=== PATIENT | female | born 1940 | race Caucasian/White ===

== ENCOUNTER 2017-10-31 12:11 | Emergency (ER) | payer MEDICARE ==
[~2017-10-31 12:11] MED LIST: Iopamidol 370 76% 100 ML VIAL ONE
[2017-10-31 12:56] LABS: #Basophils 0.1 thou/uL (0.0-0.2); #Eosinphils 0.2 thou/uL (0.0-0.7); #Lymphocytes 0.9 thou/uL (1.20-3.40); #Monocytes 0.3 thou/uL (0.11-0.59); #Neutrophils 4.2 thou/uL (1.40-6.50); %Basophils 2.1 % (0.0-1.0); %Lymphocytes 15.3 % (21.0-51.0); %Monocytes 5.2 % (0.0-10.0); %Neutrophils 73.5 % (42.0-75.0); Mean Corpuscular HGB CONC 34.1 g/dL (32.0-36.0); Mean Corpuscular Hemoglobin 30.7 pg (27.0-31.0); Mean Corpuscular Volume 90.1 fl (81.0-99.0); Mean Platelet Volume 6.3 fL (7.4-10.4); Platelet Count 180 thou/uL (130-400); RBC Distribution Width 11.6 % (11.5-14.5); Red Blood Cell (RBC) Count 3.89 mill/uL (4.20-5.40); White Blood Cell (WBC) Count 5.7 thou/uL (4.8-10.8)
[2017-10-31 12:57] LABS: ALT (SGPT) 27 U/L (8-55); AST (SGOT) 43 U/L (5-34); Albumin 3.9 g/dL (3.4-4.8); Alkaline Phosphatase 85 U/L (40-150); Anion Gap 17 mmol/L (10-20); BUN (Urea Nitrogen) 14 mg/dL (9.8-20.1); Bilirubin, Total 0.7 mg/dL (0.2-1.2); CKMB 1.9 ng/mL (0-6.6); Calc. Creatinine Clearance 0 mL/min (70-130); Calcium 9.6 mg/dL (7.8-10.44); Carbon Dioxide 24 mmol/L (23-31); Chloride 101 mmol/L (98-107); Estimated GFR-MDRD 47; Globulin 3.3 g/dL (2.4-3.5); Glucose 173 mg/dL (83-110); Lipase 73 U/L (8-78); Potassium 3.5 mmol/L (3.5-5.1); Protein, Total 7.2 g/dL (6.0-8.3); Sodium 138 mmol/L (136-145); Troponin I 0.011 ng/mL (< 0.028)
--- NOTE | 2017-10-31 13:04 | RAD ---
2 VIEWS CHEST: Date: 10/31/17 COMPARISON: 02/08/04. HISTORY: Pain, cough, bronchitis. FINDINGS: Increased linear interstitial density is noted bilaterally with pulmonary hyperinflation, suggesting COPD in the proper clinical setting. Midline sternotomy wires are present. There is degenerative change within the thoracic spine, most prominent at T9-10. There is mild anteri or wedge compression fracture of T12, stable. Midline sternotomy wires and mediastinal clips are pres ent, stable. Stable atherosclerotic calcification of the aortic arch. No focal consolidation or alveo lar edema. IMPRESSION: Chronic findings as detailed above. No lobar consolidation or alveolar edema. POS: [facility]
--- NOTE | 2017-10-31 13:08 | RAD ---
2 VIEWS LUMBAR SPINE: Date: 10/31/17 COMPARISON: None. HISTORY: Low back pain. FINDINGS: There is extensive atherosclerotic calcification of the abdominal aorta. Anterolisthesis of L5 on S1 measuring 1.1 cm with severe degenerative end plate change at the L5-S1 l evel. There is an age-indeterminate anterior wedge compression fracture of the L1 vertebral body with approximately 70% loss of vertebral body height. There is mild anterior wedging at T12 vertebral body suggesting age-indeterminate mild fracture. Ther e is mild age-indeterminate inferior end plate fracture at T10 as well. IMPRESSION: Age-indeterminate fractures are noted at T10, T12, and L1. The L1 fracture demonstrates a burst confi guration with 70% loss of vertebral body height. Acute fracture cannot be excluded in the proper clin ical setting. POS: [facility]
[2017-10-31 14:22] LABS: Bilirubin Negative (Negative); Blood, Urine Small (Negative); Glucose, Urine (Dipstick) Negative (Negative); Leukocyte Large (Negative); Nitrite Negative (Negative); Protein, Urine (Dipstick) 30 mg/dL (Neg-Trace)
[2017-10-31 14:33] LABS: Clarity Cloudy (Clear)
[2017-10-31 14:34] LABS: Bacteria/HPF 4+ HPF (None Seen)
--- NOTE | 2017-10-31 14:54 | CT ---
CHEST CT ANGIOGRAM AND ABDOMEN CT ANGIOGRAM WITH AND WITHOUT CONTRAST IMAGES INCLUDING 3D RENDERING: Date: 10/31/17 HISTORY: 77-year-old female with history of bronchitis, not feeling well. Pain in lower back for 5-6 days. FINDINGS: There is extensive aortic calcification, as well as marked three vessel coronary artery calcific dise ase. No significant CT evidence for acute PE. No evidence of aortic aneurysm or dissection. There are old granuloma calcification changes, and some mild linear and interstitial changes in the right base having more of an old appearance. Small hiatal hernia. There appears to be some faint contrast withi n the right renal collecting system on the precontrast imaging. The visualized liver, borderline uppe r range of normal size gallbladder, pancreas, and spleen are unremarkable. No evidence for gallstones or gallbladder wall thickening. No ductal dilatation. Status post aortobifemoral bypass graft partia lly seen, not seen distally. 0.9 cm of anterolisthesis of L5 on S1. Evidence for a burst fracture of L1, age is indeterminate, wit h very mild superior retropulsion. There is also a compression fracture of T12 with less than 50% misty tical height loss. This is age-indeterminate as well without significant associated stenosis. There i s also collapsed vertebral body involving T10 which has more of an old appearance. No evidence for ao rtic aneurysm. IMPRESSION: No significant CT evidence for acute PE. No evidence for aortic aneurysm or dissection. Burst fractur e of L1 and mild compression fracture of T12, age-indeterminate, with an old appearing T10 compressio n. Marked anterolisthesis of L5 on S1. Numerous other findings as above. POS: [facility]
--- NOTE | 2017-10-31 17:40 | RAD ---
LUMBAR SPINE THREE VIEWS: History: Pain. Comparison: Earlier today. FINDINGS: No further height loss of the compression fracture of L1. There is also a compression fracture of T12 . Old compression fracture at T10 is also present. Anterolisthesis is unchanged at L5-S1. IMPRESSION: 1. No further height loss of the compression deformities of the lumbar and thoracic spine. 2. There is residual contrast in the urinary bladder in dilated and patulous right ureter. POS: [facility]
== END 2017-10-31 16:55 | disposition home or self-care (01) ==
LOC: SCSER 12:11
DX: M48.56XA Collapsed vertebra, not elsewhere classified, lumbar region, initial encounter for fracture (principal); N39.0 Urinary tract infection, site not specified; E78.5 Hyperlipidemia, unspecified; I10 Essential (primary) hypertension; Z79.899 Other long term (current) drug therapy; Z79.82 Long term (current) use of aspirin
CPT/HCPCS: 71046; 71275; 72100; 80053; 81003; 81015; 82553; 83690; 84484; 85025; 87077; 87086; 87186; 93005; 96374; 96376; J2270; L0639

== ENCOUNTER 2017-11-29 12:45 | Outpatient (CLI) | payer MEDICARE ==
--- NOTE | 2017-11-29 14:15 | RAD ---
LUMBAR SPINE SERIES TWO VIEWS: HISTORY: Followup of compression fracture. COMPARISON: 10/31/2017 FINDINGS: The bones are demineralized. Compression changes at the superior endplate of T12 appear relatively s table. The degree of compression of the L1 vertebral body appears slightly increased. There appears to be slightly more bony retropulsion and/or retrolisthesis at this level. The remainder of the misty tebral bodies maintain normal height. Severe disk narrowing is seen at L5-S1. Spondylolisthesis at this level is stable. IMPRESSION: Slight increase in the degree of compression of the L1 vertebral body. The T12 compression changes a ppear stable. POS: [facility]
== END 2017-11-29 12:46 | disposition home or self-care (01) ==
LOC: TBSIIMAG 12:45
PROVIDERS: ATTEND Neurological Surgery
DX: S32.012A Unstable burst fracture of first lumbar vertebra, initial encounter for closed fracture (principal); G95.20 Unspecified cord compression
CPT/HCPCS: 72100

== ENCOUNTER 2017-12-15 12:19 | Outpatient (CLI) | payer MEDICARE ==
[2017-12-15 14:07] LABS: INR-International Normal Ratio 1.2; PTT 35.6 SEC (22.9-36.1); Prothrombin Time 15.6 SEC (12.0-14.7)
[2017-12-15 14:19] LABS: Anion Gap 10 mmol/L (10-20); BUN (Urea Nitrogen) 9 mg/dL (9.8-20.1); Calc. Creatinine Clearance 0 mL/min (70-130); Calcium 9.1 mg/dL (7.8-10.44); Carbon Dioxide 30 mmol/L (23-31); Chloride 99 mmol/L (98-107); Estimated GFR-MDRD 52; Glucose 96 mg/dL (83-110); Potassium 3.6 mmol/L (3.5-5.1); Sodium 135 mmol/L (136-145)
== END 2017-12-15 12:20 | disposition home or self-care (01) ==
LOC: LABBT 12:19
PROVIDERS: ATTEND Internal Medicine Cardiovascular Disease
DX: Z01.818 Encounter for other preprocedural examination (principal); I48.91 Unspecified atrial fibrillation
CPT/HCPCS: 80048; 85610; 85730

== ENCOUNTER 2017-12-16 10:04 | Day surgery (SDC) | payer MEDICARE ==
[2017-12-15 12:43] VITALS: BMI 17.7
[2017-12-16] MEDS ORDERED: Diprivan 20 ML ONE (11:47)
[2017-12-16] MEDS ORDERED: Lidocaine 2% PF 100 mg/5 ml Syringe ONE (11:47)
--- NOTE | 2017-12-16 13:09 | OP ---
DATE OF PROCEDURE: 12/16/2017 ELECTROCARDIOVERSION INDICATION: This 77-year-old woman with paroxysmal atrial fibrillation. DESCRIPTION OF PROCEDURE: The patient was taken to the PACU. The patient was sedated by anesthesiol anthony. The patient shocked with 200 joules of synchronized electricity. The converted to normal sinus rhythm. IMPRESSION: Successful electrocardioversion.
--- NOTE | 2017-12-16 14:45 | ECHO ---
TRANSESOPHAGEAL ECHOCARDIOGRAM: DATE OF PROCEDURE: 12/16/17 INDICATION: 77-year-old woman with paroxysmal atrial fibrillation. DESCRIPTION OF PROCEDURE: The patient was taken to the PACU. The patient was sedated by anesthesiology. A transesophageal probe was placed in the distal esophagus and stomach. Echocardiographic images were obtained. The transesophageal probe was removed. FINDINGS: 1. Normal left ventricular systolic function. 2. Left atrial enlargement. 3. Mild to moderate mitral regurgitation. 4. Moderate to severe tricuspid regurgitation. 5. No thrombus in left atrial appendage. 6. Atherosclerotic debris in the descending aorta. IMPRESSION: No formed thrombus in left atrial appendage.
--- NOTE | 2017-12-16 16:48 | EKG ---
Test Reason : PREOP Blood Pressure : / mmHG Vent. Rate : 131 BPM Atrial Rate : 069 BPM P-R Int : 000 ms QRS Dur : 088 ms QT Int : 282 ms P-R-T Axes : 000 007 246 degrees QTc Int : 416 ms undetermined rhythm bigeminal pattern of narrow complex alternating with aberrantly RBBB pattern cond ucted beats Nonspecific ST-T changes Abnormal ECG When compared with ECG of 09-NOV-2017 11:02, (Unconfirmed) Fusion complexes are now Present Criteria for Septal infarct are no longer Present ST now depressed in Inferior leads ST now depressed in Anterolateral leads T wave inversion now evident in Inferior leads T wave inversion now evident in Lateral leads Confirmed by DR. Nava UGALDE (3) on 12/16/2017 4:48:36 PM Referred By: ENRIQUE Confirmed By:DR. Nava UGALDE
== END 2017-12-16 13:45 | disposition home or self-care (01) ==
LOC: CCL 10:04
PROVIDERS: ATTEND Internal Medicine Cardiovascular Disease
PROC: 5A2204Z Restoration of Cardiac Rhythm, Single (ICD-10-PCS; principal; 2017-12-16)
PROC: B24BZZ4 Ultrasonography of Heart with Aorta, Transesophageal (ICD-10-PCS; 2017-12-16)
DX: I48.0 Paroxysmal atrial fibrillation (principal); I25.119 Atherosclerotic heart disease of native coronary artery with unspecified angina pectoris; I10 Essential (primary) hypertension; E78.00 Pure hypercholesterolemia, unspecified; F32.9 Major depressive disorder, single episode, unspecified; K21.9 Gastro-esophageal reflux disease without esophagitis; M81.0 Age-related osteoporosis without current pathological fracture; Z79.82 Long term (current) use of aspirin; Z79.01 Long term (current) use of anticoagulants; Z79.899 Other long term (current) drug therapy; Z88.2 Allergy status to sulfonamides; Z88.8 Allergy status to other drugs, medicaments and biological substances; Z95.1 Presence of aortocoronary bypass graft; Z95.820 Peripheral vascular angioplasty status with implants and grafts; Z98.890 Other specified postprocedural states
CPT/HCPCS: 92960; 93005; 93010; 93312; J2001; J2704

== ENCOUNTER 2017-12-20 13:04 | Outpatient (CLI) | payer MEDICARE ==
[2017-12-20] MEDS ORDERED: Gadobenate Dimeglumine 529 MG/1 ML (20ML VIAL) ONE (16:33)
== END 2017-12-20 13:05 | disposition home or self-care (01) ==
LOC: BICMAMMO 13:04
PROVIDERS: ATTEND Neurological Surgery
DX: S32.019S Unspecified fracture of first lumbar vertebra, sequela (principal); S32.011S Stable burst fracture of first lumbar vertebra, sequela; M47.26 Other spondylosis with radiculopathy, lumbar region
CPT/HCPCS: 72158; 77080; A9579

== ENCOUNTER 2018-07-01 14:49 | Inpatient (IN) | payer MEDICARE ==
[~2018-07-01 14:49] MED LIST changes: +ISOVUE-370 76%-LOCM 1 ML ONE; -Iopamidol 370 76% 100 ML VIAL ONE
[2018-07-01] MEDS ORDERED: Dexamethasone 10 MG/ML VIAL ONE (15:23)
[2018-07-01] MEDS ORDERED: Magnesium Sulfate 2 GM in Sodium Chloride 0.9% 100 ML IVPB ONE (15:30)
[2018-07-01 15:38] LABS: Bilirubin Small (Negative); Blood, Urine Large (Negative); Clarity CLOUDY (Clear); Glucose, Urine (Dipstick) Negative (Negative); Leukocyte Trace (Negative); Nitrite Negative (Negative); Protein, Urine (Dipstick) 100 mg/dL (Neg-Trace); Specific Gravity, Urine 1.018 (1.002-1.036)
[2018-07-01 15:41] LABS: Bacteria/HPF None Seen HPF (None Seen); Hyaline Casts/LPF 4-6 HYALINE CAST LPF (0-3 Hyaline); Pathc Cast-AUWi Flag 1.01 (0-2.49); Squamous Epithelial 0-3 HPF (0-3); WBC/HPF 0-3 HPF (0-3)
[2018-07-01 15:52] LABS: RBC/HPF 21-50 HPF (0-3)
[2018-07-01 15:54] LABS: Analyzer IN Cardio ER; Base Excess (BEa) -3.9 mEq/L (-2.0 to +3.0); Calcium, Ionized 1.04 mmol/L (1.12-1.30); Carboxyhemoglobin (COHb) 0.6 gm% (0.0-3.0); Hemoglobin (Hb) 13.8 g/dL (12.0-16.0); O2 Tension (PaO2) 98.1 mmHg (> 70.0); Potassium - ABG Lab 3.26 mmol/L (3.70-5.30); pH, Arterial 7.43 (7.35-7.45)
[2018-07-01 15:54] LABS: Hemoglobin 11.8 g/dL (12.0-16.0); Mean Corpuscular HGB CONC 34.1 g/dL (32.0-36.0); Mean Corpuscular Hemoglobin 32.8 pg (27.0-31.0); RBC Distribution Width 11.9 % (11.5-14.5); Red Blood Cell (RBC) Count 3.59 mill/uL (4.20-5.40); White Blood Cell (WBC) Count 8.5 thou/uL (4.8-10.8)
[2018-07-01 16:08] LABS: Band 11 % (5-11); Hypochromia SLIGHT = 6-15 cells (100X) (0-5/hpf); Lymphocytes 4 % (21-51); MDiff Complete? YES; Mean Platelet Volume 9.1 fL (7.4-10.4); Monocytes 19 % (0-10); Neutrophil 66 % (42-75); PLT Morphology Comment Appears Decreased; Platelet Count 80 thou/uL (130-400)
[2018-07-01 16:14] LABS: ALT (SGPT) 51 U/L (8-55); AST (SGOT) 120 U/L (5-34); Albumin 3.5 g/dL (3.4-4.8); Alkaline Phosphatase 88 U/L (40-150); Anion Gap 16 mmol/L (10-20); BUN (Urea Nitrogen) 21 mg/dL (9.8-20.1); Bilirubin, Total 1.7 mg/dL (0.2-1.2); CK (CPK) 1284 U/L (29-168); Calc. Creatinine Clearance 0 mL/min (70-130); Calcium 8.1 mg/dL (7.8-10.44); Carbon Dioxide 21 mmol/L (23-31); Chloride 94 mmol/L (98-107); Estimated GFR-MDRD 46; Globulin 2.2 g/dL (2.4-3.5); Glucose 105 mg/dL (83-110); Lipase 49 U/L (8-78); Potassium 3.8 mmol/L (3.5-5.1); Protein, Total 5.7 g/dL (6.0-8.3); Sodium 127 mmol/L (136-145)
[2018-07-01 16:22] LABS: CKMB 1.8 ng/mL (0-6.6); Troponin I 0.044 ng/mL (< 0.028)
--- NOTE | 2018-07-01 16:30 | RAD ---
ONE VIEW CHEST: 07/01/18 COMPARISON: 10/25/06. HISTORY: Dyspnea. FINDINGS: Atherosclerosis of the aorta. Normal cardiac silhouette. Pulmonary vessels and hilum are normal. Cost ophrenic angles are clear. Chronic changes, without consolidation or mass. There is no pneumothorax. No osseous abnormalities. Extensive calcifications of the carotid arteries is suspected. Sternotomy wires are noted. IMPRESSION: Extensive atherosclerosis. No acute cardiopulmonary process. POS: [facility]
[2018-07-01 16:39] LABS: Digoxin 1.27 ng/mL (0.8-2.0)
--- NOTE | 2018-07-01 18:17 | CT ---
CT ANGIOGRAM CHEST WITH CONTRAST 07/01/18 HISTORY: Weakness. Low O2 sats. COMPARISON: Chest radiograph same day. FINDINGS: CT angiogram of the chest performed after the intravenous administration of contrast. 3D rendering is provided. Pulmonary trunk and left and right main pulmonary arteries are dilated. No proximal segmen andre pulmonary arterial filling defect is appreciated. Extensive calcification of the aorta without aneurysmal dilatation. Heart size is enlarged. There is reflux of contrast within the hepatic veins and suprahepatic IVC. No filling defect is seen within th e left atrial appendage. Multiple midline sternotomy wires. Multiple calcified granulomas of the spleen. Extensive calcification of the origin of the superior me senteric artery and celiac arteries. Compression fractures are present at the superior end plate of T12 as well as vertebra plana at what appears to be L1. There is also compression fracture at L4. There is moderate pulmonary edema. Small effusions. No acute displaced rib fracture is appreciated. IMPRESSION: 1. No proximal segmental pulmonary arterial filling defect. 2. Cardiomegaly with moderate edema and small effusions to suggest congestive heart failure. The re is also reflux within the suprahepatic IVC and hepatic veins indicating diastolic dysfunction. 3. Osseous demineralization of multiple compression fractures of the spine. 4. Dilated pulmonary artery suggesting pulmonary arterial hypertension. POS: [facility]
[2018-07-01] MEDS ORDERED: MEROPENEM 1 GM/50 ML 1 GM in Premix Bag 1 BAG IVPB SCH (18:30)
[2018-07-01] MEDS ORDERED: DOBUTamine 500 mg/250 ml 500 MG in Premix Bag 1 BAG IVPB SCH (18:30)
[2018-07-01 19:34] LABS: Troponin I 0.049 ng/mL (< 0.028)
[2018-07-01 22:16] LABS: Troponin I 0.049 ng/mL (< 0.028)
[2018-07-01] MEDS ORDERED: Ondansetron HCl/PF 4 MG/2 ML Vial IVP PRN (22:31)
[2018-07-01] MEDS ORDERED: Ondansetron ODT 4 MG TAB SL PRN (22:31)
[2018-07-01] MEDS ORDERED: Sodium Chloride 0.9% 1,000 ML IV SCH (22:45)
[2018-07-01] MEDS ORDERED: Famotidine 20 MG TAB PO SCH (23:15)
[2018-07-01] MEDS ORDERED: Apixaban 2.5 MG TAB PO SCH (23:15)
[2018-07-01] MEDS ORDERED: Ezetimibe 10 MG TAB PO SCH (23:15)
[2018-07-02] MEDS: Cefepime 2 GM in Sodium Chloride 0.9% 100 ML IVPB SCH ×3 (00:19→23:16)
[2018-07-02 01:36] LABS: Osmolality, Urine 405 mOsm/kg (300-900)
[2018-07-02 01:44] LABS: Sodium, Urine Less than 20 mmol/L (Not Available)
--- NOTE | 2018-07-02 02:06 | HP ---
PRIMARY CARE PHYSICIAN: Dr. Rick Sinclair. CHIEF COMPLAINT: Feeling sick and also short of breath. HISTORY OF PRESENT ILLNESS: Ms. Frey is a pleasant 77-year-old female who has a history of coronar y artery disease, also has a history of a left atrial myxoma, which was resected as well as hypertens ion. She was in her usual state of health until Wednesday. She says that she was feeling "sick." She had gone to worship and then when she went home about 4 hours later, her son checked on her and she se emed confused and did not remember going to worship at all. Other family members report that she has been having "fevers off and on all week" and she also got extremely weak and fell 3 times during the night prior to admission. They also noted some wheezing when she was breathing, but she has not had any cough. She says that she began getting more and more short of breath and says that she feels lik e she needs to cough, but can take a deep enough breath in order to do so. As a result, she came to the emergency room for evaluation. In the ER, she was found to be tachypneic as well as hypoxic and O2 sats reportedly were in the 80s initially. She was given supplemental oxygen, but eventually need ed to be placed on BiPAP. She was also noted to have some temperature of 100.7 rectally. A chest x- ray was essentially negative, but a CT scan was done and showed evidence of moderate amount of edema and pleural effusions to suggest congestive heart failure. The patient is currently being admitted t o the ICU for further treatment. Other pertinent information as the patient also was complaining of some pain on her left knee behind her knee for the past few days and then noticed some redness in marcia t area just starting today. She says this is the same leg in which she has had a femoral popliteal b ypass surgery. The patient during this time denies having any chest pain, no palpitations. No repor t of any PND, no orthopnea, and she says she was never told she had any type of heart failure. She s ays she last saw Dr. Kaba about 3 weeks ago and things were essentially stable at that time. REVIEW OF SYSTEMS: All systems are reviewed and are negative except for that mentioned in the histor y of present illness. PAST MEDICAL HISTORY: Significant for coronary artery disease, left atrial myxoma, hypertension, dys lipidemia, carotid artery disease. PAST SURGICAL HISTORY: She has had a bypass surgery and the resection of a left atrial myxoma. She also had a redo CABG, aortofemoral bypass, left femoral bypass, and a left carotid endarterectomy, as well as a hysterectomy. ALLERGIES: SULFA. SOCIAL HISTORY: She is , has two children. She is a former smoker. She drinks about 6 ounc es of wine a day. She is not sure about her code status, she cannot decide. For this reason, she wi ll be a FULL CODE. FAMILY HISTORY: Significant for cancer. MEDICATIONS: She is not sure about her medications, her daughter says she is on Zetia, Lipitor, digo luis, Eliquis, Micardis, and Zoloft, but does not know the doses and she says she believes there are c ouple more. PHYSICAL EXAMINATION: GENERAL: She is alert and oriented. She appears to be in some distress due to dyspnea. She is well -developed and well-nourished, but a bit thin. She is currently on BiPAP. VITAL SIGNS: Initially blood pressure was 88/62, heart rate 86, respiratory rate of 32, temperature was 99.4. HEENT: Pupils are equal, round, and reactive. Extraocular muscles are intact. Her sclerae are anic teric. Throat: She has got dry mucous membranes. There is no erythema, no exudates. NECK: There is no jugular venous distention, no bruits, no adenopathy. LUNGS: She has got rales; however, is primarily in the right base. She has some mild decreased danuta th sounds at the bases. I did not appreciate any wheezing, no rhonchi. CARDIOVASCULAR: She had a normal S1, S2. There is no S3 or S4. No murmurs, clicks, or rubs. ABDOMEN: Soft, it is nontender, nondistended. Positive for bowel sounds. There is no rebound or gu arding. EXTREMITIES: She had no edema. She had some redness in the popliteal fossa. There was no warmth; h owever, there is no erythema. She got palpable dorsalis pedis pulses. NEUROLOGIC: She is moving all extremities. Her muscle strength is 5/5 in both her upper and lower e xtremities. Her cranial nerves II through XII are intact. LABORATORY AND X-RAY FINDINGS: Her chest x-ray by my reading, it looks like she had some cardiomegal y as well as increase in her pulmonary vascular markings and there were some calcifications of her ma allison vessels. A CT scan again demonstrated some cardiomegaly and evidence for pulmonary edema. Sodiu m was 127, potassium 3.8, chloride is 94, CO2 is 21, BUN of 21, creatinine of 1.13, glucose is 105, t otal bilirubin was elevated at 1.7, AST is 120. Troponin was 0.044. White blood cell count was 8.5, hemoglobin of 11.8, hematocrit is 34.5, platelet count is 80. Her EKG is sinus rhythm, the rate was 86. She appears to have an interventricular conduction delay and RSR prime in V1 and V2 as well as V3, likely indicating a right bundle branch block. ASSESSMENT AND PLAN: This is a pleasant 77-year-old female who presents with what sounds like a suba cute episode of shortness of breath, the etiology of which is a bit difficult to discern some of the characteristics are consistent with heart failure and other possibilities of pneumonia. Her dose fav oring congestive heart failure or the increase proBNP. CT findings consistent with edema and her ciera vated troponin. Her white count is normal and there is no left shift. However, on exam, the rales s eem to be localized primarily to the right lower mid quadrant and she did have some fever on admissio n and then had historically some fever over the last week. She is also hyponatremic. This could be due to volume overload or volume depletion, we will need to do further testing to help discern this. Therefore, for the plan, patient will be admitted to the ICU. I spoke with her automotive dismantler on the phone to help make this decision. Her situation is more or less continuous with her borderline blood pressure and advanced age and complicated cardiac history. 1. Acute hypoxic respiratory failure with hypoxemia. We will continue BiPAP for now. She would lik e to be remained a FULL CODE. Therefore, she decompensates, she would require intubation. 2. Congestive heart failure. This would be new onset. Her blood pressure is just now come up high enough to give a trial of IV Lasix. We will just do x1. I spoke with Dr. Kaba of her pressure s hould drop again and then she would recommend using dopamine. We will place a Patricio to accurately mo nitor her I's and O's. We will check an echocardiogram to assess her EF. 3. Possible pneumonia. We will treat her with cefepime and Levaquin. We will also check a procalci tonin to help us to determine whether she could be infected or for bacterial infection. 4. Coronary artery disease history. We will continue to trend her cardiac enzymes. 5. For hypertension, we will need to reconcile her home medications. However, right now, her blood pressure is borderline to low, therefore likely will not restart them at this point. Should her bloo d pressure rise, then we can use her usual home medications plus p.r.n. medications. 6. Hyponatremia. We will need to check a urine sodium as well as urine and sodium osmolality to hel p differentiate the cause and then treat appropriately. 7. Deep venous thrombosis prophylaxis. This will likely be held. She historically has been on Eliq uis; therefore, once we can verify this, this can be restarted and will be used in lieu deep venous t hrombosis prophylaxis.
[2018-07-02] MEDS ORDERED: MEROPENEM 1 GM/50 ML 1 GM in Premix Bag 1 BAG IVPB SCH (03:00)
[2018-07-02 04:18] LABS: Anion Gap 14 mmol/L (10-20); BUN (Urea Nitrogen) 21 mg/dL (9.8-20.1); Calc. Creatinine Clearance 38 mL/min (70-130); Calcium 8.4 mg/dL (7.8-10.44); Carbon Dioxide 20 mmol/L (23-31); Chloride 98 mmol/L (98-107); Estimated GFR-MDRD 57; Glucose 130 mg/dL (83-110); Potassium 3.7 mmol/L (3.5-5.1); Sodium 128 mmol/L (136-145)
[2018-07-02 05:06] LABS: Band 22 % (5-11); Hemoglobin 11.3 g/dL (12.0-16.0); Lymphocytes 4 % (21-51); MDiff Complete? YES; Mean Corpuscular HGB CONC 34.1 g/dL (32.0-36.0); Mean Corpuscular Hemoglobin 32.6 pg (27.0-31.0); Mean Corpuscular Volume 95.6 fL (78.0-98.0); Mean Platelet Volume 9.3 fL (7.4-10.4); Monocytes 3 % (0-10); Neutrophil 71 % (42-75); PLT Morphology Comment Appears Decreased; Platelet Count 83 thou/uL (130-400); Red Blood Cell (RBC) Count 3.48 mill/uL (4.20-5.40); White Blood Cell (WBC) Count 7.8 thou/uL (4.8-10.8)
[2018-07-02] MEDS ORDERED: Furosemide 40 MG/4 ML VIAL SLOW IVP SCH (06:00)
[2018-07-02] MEDS ORDERED: Prevnar 13-Val Conj/PF 0.5 ML SYRINGE IM ONE (09:00)
[2018-07-02] MEDS: Apixaban 2.5 MG TAB PO SCH ×2 (09:55→20:02)
[2018-07-02] MEDS ORDERED: Aspirin 81 mg Enteric Coated Tablet PO SCH (11:00)
[2018-07-02] MEDS: Acetaminophen 325 MG TAB PO PRN (11:49)
--- NOTE | 2018-07-02 12:44 | PDOC.PN ---
- Subjective Encounter Start Date: 07/02/18 Encounter Start Time: 11:40 Subjective: awake, responds well to verbal stimuli -: no sob or chest pain or palp -: no cough or urinary burning prior to arrival (has cramer now) - Objective Resuscitation Status: Resuscitation Status FULL:Full Resuscitation MAR Reviewed: Yes Vital Signs & Weight: Vital Signs (12 hours) Temp Pulse Ox 07/02/18 12:00 98.0 F 07/02/18 08:00 94 L 07/02/18 07:00 98.7 F 07/02/18 03:00 98.0 F Weight Admit Weight 109 lb 2.061 oz Weight 109 lb 2.061 oz Most Recent Monitor Data Heart Rate from ECG 90 NIBP 112/61 NIBP BP-Mean 77 Respiration from ECG 23 SpO2 92 I&O: 07/01/18 07/02/18 07/03/18 06:59 06:59 06:59 Intake Total 622 400 Output Total 975 1140 Balance -353 -740 Result Diagrams: 07/02/18 03:15 07/02/18 03:15 Phys Exam - Physical Examination HEENT: PERRLA, moist MMs Neck: no JVD, supple Respiratory: no wheezing, no rales Cardiovascular: RRR, no significant murmur Gastrointestinal: soft, non-tender, positive bowel sounds Musculoskeletal: no edema, pulses present Neurological: non-focal, moves all 4 limbs Psychiatric: normal affect, A&O x 3 Dx/Plan (1) Acute encephalopathy Code(s): G93.40 - ENCEPHALOPATHY, UNSPECIFIED Status: Acute (2) Streptococcal bacteremia Code(s): R78.81 - BACTEREMIA; B95.5 - UNSP STREPTOCOCCUS THE CAUSE OF DISEASES CLASSD ELSWHR Status: Acute (3) Sepsis Code(s): A41.9 - SEPSIS, UNSPECIFIED ORGANISM Status: Acute Qualifiers: Sepsis type: Streptococcus group B Qualified Code(s): A40.1 - Sepsis due to streptococcus, group B (4) Chronic a-fib Code(s): I48.2 - CHRONIC ATRIAL FIBRILLATION Status: Chronic (5) Acute respiratory failure with hypoxia Code(s): J96.01 - ACUTE RESPIRATORY FAILURE WITH HYPOXIA Status: Resolved (6) HTN (hypertension) Code(s): I10 - ESSENTIAL (PRIMARY) HYPERTENSION Status: Chronic Qualifiers: Hypertension type: essential hypertension Qualified Code(s): I10 - Essential (primary) hypertension - Plan is on cefepime -: gentle iv hydration/oral hydration if she tolerates -: may transfer to tele -: continue asp, lipitor, eliquis and zetia -: PT to mobilize as tolerated with rw * . Review of Systems - Medications/Allergies Allergies/Adverse Reactions: Allergies Allergy/AdvReac Type Severity Reaction Status Date / Time Sulfa (Sulfonamide Allergy Unknown "broke out Verified 12/15/17 12:43 Antibiotics) " Medications: Current Medications Acetaminophen (Tylenol) 650 mg PO Q4H PRN PRN Reason: Headache/Fever or Pain Last Admin: 07/02/18 11:49 Dose: 650 mg Apixaban (Eliquis) 2.5 mg PO BID [facility] Last Admin: 07/02/18 09:55 Dose: 2.5 mg Aspirin (Ecotrin) 81 mg PO DAILY MARI Aspirin (Ecotrin) 81 mg PO NOW MARI Stop: 07/02/18 13:00 Last Admin: 07/02/18 11:33 Dose: 81 mg Atorvastatin Calcium (Lipitor) 40 mg PO HS MARI Ezetimibe (Zetia) 10 mg PO QPM MARI Cefepime HCl 2 gm/ Sodium (Chloride) 100 mls @ 200 mls/hr IVPB 1200,2359 [facility] Last Admin: 07/02/18 11:33 Dose: 100 mls Pneumococcal 13-Valent Conj Vacc (Prevnar) 0.5 ml IM .ONCE ONE Stop: 07/03/18 06:01
--- NOTE | 2018-07-02 12:50 | CON ---
DATE OF CONSULTATION: 07/02/2018 SERVICE: Pulmonary Medicine. REASON FOR CONSULTATION: ICU patient. HISTORY OF PRESENT ILLNESS: The patient was effectively brought into the hospital by her family, because she was feeling sick, and apparently, there was some shortness of breath associated with that. She has had 3 recent falls and fevers on and off all week. She has not been eating or drinking appropriately. Either way, she was brought into the emergency department. The patient actually cannot tell me why she is here. In the ER, her sats were identified as being a little bit low. She was given supplemental oxygen and eventually placed on BiPAP. She had a little bit of a temperature rectally. In the ICU, she stabilized overnight and did not use the BiPAP at all. This morning, she denies having any shortness of breath or chest discomfort. She had an uneventful evening. She is hungry and requesting some food. PAST MEDICAL HISTORY: 1. Coronary artery disease. 2. Hypertension. 3. Dyslipidemia. 4. Carotid artery disease. 5. Left atrial myxoma. PAST SURGICAL HISTORY: 1. Coronary artery bypass graft and resection of left atrial myxoma. 2. Redo coronary artery bypass graft. 3. Aortofemoral bypass. 4. Left femoral bypass. 5. Left carotid endarterectomy. 6. Hysterectomy. FAMILY HISTORY: Noncontributory. SOCIAL HISTORY: She is and has 2 children. She has a [id number] history of smoking, but quit remotely. She drinks a glass of wine on a daily basis and denies any illicit drugs. She has no exposure to chemicals, dust, asbestos, or tuberculosis. ALLERGIES: SULFA. MEDICATIONS: List of her inpatient medications were reviewed. No specific updates were made. REVIEW OF SYSTEMS: General, head, ears, eyes, nose, throat, cardiovascular, respiratory, GI, , musculoskeletal, neurologic, and skin is negative except as mentioned in the HPI. PHYSICAL EXAMINATION: VITAL SIGNS: Afebrile, pulse 79, blood pressure 113/63, respirations 22, saturation 93% on 3 liters nasal cannula. GENERAL: The patient is awake, alert, in no apparent distress. LUNGS: Decent air entry. Minimal dependent crackles are present. There is no prolonged expiratory phase or wheezing appreciated. HEART: Normal rate, regular. ABDOMEN: Soft, nontender, nondistended. Bowel sounds are positive. MUSCULOSKELETAL: No cyanosis or clubbing. There is no pitting in the bilateral lower extremities. If anything, she has skin tenting throughout. The left posterior leg has erythema present. There is some warmth to it. There is no fluctuance. LABORATORY DATA: WBC 7.8, hemoglobin 11.3, platelets 83,000. Band count is 22% . D-dimer 3.55, pH 7.43, pCO2 of 29, pO2 of 98. BUN 21, bicarbonate 20, creatinine 0.94 and gently down trending. Sodium 128 and improving. Procalcitonin 4.95. Troponin 0.049 and roughly stable. Lactate is unremarkable at 1.2. AST is elevated, but ALT falls within the normal limits. Total bilirubin 1.7. BNP 522. Gram-positive cocci are positive in 2/2, one of which is growing Streptococcus. IMAGING: CT of the chest demonstrates interstitial fullness in the periphery of the lungs. She also has some ground-glass opacification, which falls into the dependent regions. Bilateral pleural effusions are small with minimal adjacent atelectasis. These findings are all consistent, for the most part, with minimal volume overload. She has a very large left atrium and right atrium. Pulmonary artery is generous. ASSESSMENT: 1. Acute hypoxic respiratory failure. 2. Severe sepsis. 3. Metabolic encephalopathy, secondary to infectious process. 4. Bacteremia, secondary to Streptococcus. 5. Cellulitis? DISCUSSION AND PLAN: The patient is on antibiotics. I will discontinue IV fluids and also discontinue the Lasix for the time being. We will allow the patient to eat. Eliquis, aspirin, and Lipitor will be continued. We will hold off on reinitiating her blood pressure medications for the time being and add them back as needed. From my perspective, she is stable for transition to the telemetry unit. Pulmonary Critical Care will continue to follow along. 70 minutes have been devoted to this patient in various activities. I personally reviewed all imaging studies and laboratory data noted within this document. For fifty percent of this time, I was interacting with the patient at the bedside or coordinating care with the care team. For the remainder of the time I was immediately available to the patient in the hospital unit. LORENZO
--- NOTE | 2018-07-02 15:52 | CON ---
DATE OF CONSULT: 07/02/18 CRITICAL CARE NOTE Time 30 minutes. The patient is a pleasant 77-year-old woman with a long history of coronary artery disease who presented with weakness, fever and altered mental status. The patient has a long history of coronary artery disease. She previously underwent coronary bypass graft surgery in 2003. She also had a left atrial myxoma removed. The patient underwent repeat bypass surgery subsequently and underwent a FARR placed to the LAD. The patient also has a history of atrial fibrillation. She has been on chronic anticoagulation therapy. The patient has also had a carotid endarterectomy. The patient was in her usual state of health when she started feeling weak. She reported having fever and took Tylenol. She became diaphoretic and apparently confused. The patient denied having any chest discomfort. PAST MEDICAL HISTORY: 1. Coronary artery disease. 2. Status post coronary bypass surgery x2. 3. History of fem-pop bypass. 4. History of carotid endarterectomy. 5. History of atrial fibrillation. 6. Dyslipidemia. PAST SURGICAL HISTORY: Coronary bypass surgery x3 and left myxoma removed in 2001. She had FARR to the LAD in 2003. She had aortobifemoral in 03/2014. She had a fem-pop bypass 2006, she also had a hysterectomy. SOCIAL HISTORY; Former smoker. ALLERGIES: SULFA. FAMILY HISTORY: Positive family history of heart disease. MEDICATIONS: See nursing list. PHYSICAL EXAMINATION: GENERAL: This is an ill-appearing woman with a blood pressure 120/70. NECK: Showed no jugular venous distention. LUNGS: Have coarse breath sounds bilateral. HEART: Irregular rate and rhythm, normal S1, S2, I/ systolic murmur. ABDOMEN: Nondistended. EXTREMITIES: Showed trace edema. LABORATORY DATA: White blood count 7.8, hemoglobin 11.3, hematocrit 33.3 and platelets are 83. Her sodium was 128, potassium 3.7, chloride 98, bicarbonate 20, BUN 21, creatinine 0.94, glucose is 130. Troponin 0.049. Her chest x-ray revealed cardiomegaly with no acute pulmonary process. CT scan revealed no pulmonary embolus with evidence of pulmonary edema. IMPRESSION: 1. Septic shock secondary to Streptococcus. 2. Coronary artery disease. 3. History of peripheral vascular disease. 4. History of left atrial myxoma. 5. History of cerebrovascular disease. This patient presents with septic shock. The patient is on IV antibiotics. The patient has been restarted on aspirin, Lipitor, and apixaban. From a cardiac standpoint, we will check the patient's echocardiogram. We will follow this critically ill patient with you through her hospitalization. LORENZO
[2018-07-02] MEDS: Atorvastatin Calcium 40 MG TAB PO SCH (20:02)
[2018-07-02] MEDS: Ezetimibe 10 MG TAB PO SCH (20:02)
[2018-07-02] MEDS ORDERED: Famotidine 20 MG TAB PO SCH (21:00)
[2018-07-03 05:59] LABS: Anion Gap 14 mmol/L (10-20); BUN (Urea Nitrogen) 34 mg/dL (9.8-20.1); Calc. Creatinine Clearance 27 mL/min (70-130); Calcium 8.2 mg/dL (7.8-10.44); Carbon Dioxide 20 mmol/L (23-31); Chloride 100 mmol/L (98-107); Estimated GFR-MDRD 42; Glucose 123 mg/dL (83-110); Potassium 3.8 mmol/L (3.5-5.1); Sodium 130 mmol/L (136-145)
[2018-07-03] MEDS ORDERED: Furosemide 40 MG/4 ML VIAL SLOW IVP SCH (06:00)
[2018-07-03] MEDS ORDERED: Prevnar 13-Val Conj/PF 0.5 ML SYRINGE IM ONE ×2 (06:00→09:00)
[2018-07-03 06:11] LABS: Band 22 % (5-11); Hemoglobin 11.7 g/dL (12.0-16.0); Lymphocytes 5 % (21-51); MDiff Complete? YES; Mean Corpuscular HGB CONC 32.4 g/dL (32.0-36.0); Mean Corpuscular Hemoglobin 31.3 pg (27.0-31.0); Mean Corpuscular Volume 96.4 fL (78.0-98.0); Mean Platelet Volume 9.2 fL (7.4-10.4); Monocytes 3 % (0-10); Neutrophil 70 % (42-75); Platelet Count 141 thou/uL (130-400); RBC Distribution Width 12.1 % (11.5-14.5); Red Blood Cell (RBC) Count 3.74 mill/uL (4.20-5.40)
[2018-07-03] MEDS ORDERED: Carvedilol 6.25 MG TAB PO SCH ×2 (08:30→17:00)
--- NOTE | 2018-07-03 09:06 | RAD ---
CHEST 1 VIEW: Date: 07/03/18 HISTORY: Respiratory distress. COMPARISON: 07/01/18. FINDINGS: Atherosclerosis of aorta. There are sternotomy wires. Normal cardiac silhouette. Pulmonary vessels an d hilum are normal. Small right-sided pleural effusion with adjacent parenchymal changes. No pneumoth orax or osseous abnormalities. IMPRESSION: 1. Small right-sided pleural effusion with adjacent parenchymal changes. 2. Atherosclerosis. POS: [facility]
[2018-07-03] MEDS: Aspirin 81 mg Enteric Coated Tablet PO SCH (09:15)
[2018-07-03] MEDS: Apixaban 2.5 MG TAB PO SCH ×2 (09:15→21:12)
--- NOTE | 2018-07-03 10:14 | PDOC.PN ---
- Subjective Encounter Start Date: 07/03/18 Encounter Start Time: 08:25 Subjective: no sob or palp -: no cough or sore throat or tooth ache -: no abd pain, nausea - Objective Resuscitation Status: Resuscitation Status FULL:Full Resuscitation MAR Reviewed: Yes Vital Signs & Weight: Vital Signs (12 hours) Temp Pulse Resp BP Pulse Ox 07/03/18 08:00 98.1 F 60 18 132/56 L 100 07/03/18 04:00 97.7 F 75 20 131/71 100 07/03/18 00:00 99 Weight Admit Weight 109 lb 2.061 oz Weight 101 lb 3 oz Most Recent Monitor Data Heart Rate from ECG 84 NIBP 103/67 NIBP BP-Mean 70 Respiration from ECG 23 SpO2 92 I&O: 07/02/18 07/03/18 07/04/18 06:59 06:59 06:59 Intake Total 622 1421 Output Total 975 2260 Balance -353 -939 Result Diagrams: 07/03/18 05:02 07/03/18 05:02 Phys Exam - Physical Examination HEENT: PERRLA, moist MMs Neck: no JVD, supple Respiratory: no wheezing, no rales Cardiovascular: no significant murmur, irregular Gastrointestinal: soft, no distention, positive bowel sounds Musculoskeletal: no edema, pulses present Neurological: non-focal, moves all 4 limbs Psychiatric: normal affect, A&O x 3 Dx/Plan (1) Acute encephalopathy Code(s): G93.40 - ENCEPHALOPATHY, UNSPECIFIED Status: Acute Comment: resolving (2) Streptococcal bacteremia Code(s): R78.81 - BACTEREMIA; B95.5 - UNSP STREPTOCOCCUS THE CAUSE OF DISEASES CLASSD ELSWHR Status: Acute (3) Sepsis Code(s): A41.9 - SEPSIS, UNSPECIFIED ORGANISM Status: Acute Qualifiers: Sepsis type: Streptococcus group B Qualified Code(s): A40.1 - Sepsis due to streptococcus, group B (4) Chronic a-fib Code(s): I48.2 - CHRONIC ATRIAL FIBRILLATION Status: Chronic (5) Acute respiratory failure with hypoxia Code(s): J96.01 - ACUTE RESPIRATORY FAILURE WITH HYPOXIA Status: Resolved (6) HTN (hypertension) Code(s): I10 - ESSENTIAL (PRIMARY) HYPERTENSION Status: Chronic Qualifiers: Hypertension type: essential hypertension Qualified Code(s): I10 - Essential (primary) hypertension - Plan unknown source for strep bacteremia, ?cellulitis behind knee -: echo no thrombus -: is on cefepime, will see pt -: continue asp, eliquis, lipitor and zetia -: watch for renal function, if needed will hydrate * . Review of Systems - Medications/Allergies Allergies/Adverse Reactions: Allergies Allergy/AdvReac Type Severity Reaction Status Date / Time Sulfa (Sulfonamide Allergy Unknown "broke out Verified 12/15/17 12:43 Antibiotics) " Medications: Current Medications Acetaminophen (Tylenol) 650 mg PO Q4H PRN PRN Reason: Headache/Fever or Pain Last Admin: 07/02/18 11:49 Dose: 650 mg Apixaban (Eliquis) 2.5 mg PO BID [facility] Last Admin: 07/03/18 09:15 Dose: 2.5 mg Aspirin (Ecotrin) 81 mg PO DAILY [facility] Last Admin: 07/03/18 09:15 Dose: 81 mg Atorvastatin Calcium (Lipitor) 40 mg PO HS [facility] Last Admin: 07/02/18 20:02 Dose: 40 mg Carvedilol (Coreg) 6.25 mg PO BID-WM [facility] Ezetimibe (Zetia) 10 mg PO QPM [facility] Last Admin: 07/02/18 20:02 Dose: 10 mg Cefepime HCl 2 gm/ Sodium (Chloride) 100 mls @ 200 mls/hr IVPB 1200,2359 [facility] Last Admin: 07/02/18 23:16 Dose: 100 mls
[2018-07-03] MEDS: Cefepime 2 GM in Sodium Chloride 0.9% 100 ML IVPB SCH (11:07)
[2018-07-03] MEDS: Carvedilol 6.25 MG TAB PO SCH (16:48)
[2018-07-03] MEDS: cefTRIAXone\\ROCEPHIN 2 GM in Sodium Chloride 0.9% 100 ML IVPB SCH (16:53)
--- NOTE | 2018-07-03 17:34 | PRG ---
DATE OF SERVICE: 07/03/2018 SERVICE: Pulmonary Medicine. INTERVAL HISTORY: The patient is doing great from a respiratory standpoint. She is breathing comfortably. She is pleasantly confused. Otherwise, there has been no interval change to her condition. She remains on room air. Blood pressures have firmed up very nicely. PHYSICAL EXAMINATION: VITAL SIGNS: Afebrile, pulse 93, blood pressure 117/68, respirations 16, saturation 98% on room air. GENERAL: The patient is awake and alert, in no apparent distress. LUNGS: Decent air entry with no prolonged expiratory phase or wheezing. HEART: Normal rate, regular. ABDOMEN: Soft, nontender, nondistended. Bowel sounds are positive. MUSCULOSKELETAL: No cyanosis or clubbing. There is no pitting in the bilateral lower extremities. NEUROLOGIC: Grossly nonfocal. LABORATORY DATA: WBC 15.0, hemoglobin 11.7, platelets 141,000 and rebounding. Band count is stable at 22%. Creatinine 1.23, BUN 34. Basic metabolic profile is otherwise unremarkable. Beta hemolytic streptococcus is growing in 2/2. IMAGIN. Chest x-ray demonstrates small right-sided effusion with adjacent parenchymal changes. 2. Echocardiogram demonstrates 55% ejection fraction, dilated IVC and moderate- to-severe tricuspid regurgitation. The left atrium and left ventricle are enlarged slightly. ASSESSMENT: 1. Acute hypoxic respiratory failure. 2. Severe sepsis. 3. Acute kidney injury secondary to likely low blood pressure event on presentation. 4. Metabolic encephalopathy secondary to infectious process, improving. 5. Bacteremia from Streptococcus. 6. Cellulitis? DISCUSSION AND PLAN: The patient is doing fine from a respiratory standpoint. At this point, hemodynamics have firmed up very nicely. We will continue supportive measures and avoid nephrotoxic agents. At this point, she has no further requirements for inpatient Pulmonary or Critical Care opinion and I will sign off. Please call with additional questions or concerns moving forward. LORENZO
--- NOTE | 2018-07-03 18:37 | ULT ---
SOFT TISSUE ULTRASOUND: HISTORY: Popliteal fossa mass with redness. COMPARISON: None. FINDINGS: There is a superficial collection of fluid just below the skin surface, at the area of redness, which may reflect hemorrhage. Early phlegmonous change is also a possibility. IMPRESSION: Superficial soft tissue collection, measuring 3.6 x 0.4 x 0.4 cm, which may reflect phlegmonous pabon es or hemorrhage. MRI may be beneficial. POS: [facility]
[2018-07-03] MEDS: Ezetimibe 10 MG TAB PO SCH (21:12)
[2018-07-03] MEDS: Atorvastatin Calcium 40 MG TAB PO SCH (21:12)
--- NOTE | 2018-07-04 04:31 | CON ---
DATE OF CONSULTATION: 07/03/2018 REASON FOR CONSULTATION: Bacteremia. HISTORY OF PRESENT ILLNESS: This is a 77-year-old patient, who has a history of coronary artery disease, peripheral vascular disease with prior surgical procedures, which appear to have included coronary bypass surgery, resection of left atrial myxoma, aortofemoral bypass, left fem-pop bypass and left carotid endarterectomy, and was noticed area of redness and tenderness in the left popliteal fossa. She also subsequently developed altered mental status and fever for the week before admission, she fell three times prior to admission. Eventually, was brought to the hospital. PHYSICAL EXAMINATION: VITAL SIGNS: The blood pressure was 82/62, heart rate 86, respirations 32, and temperature 99.4. LUNGS: With inspiratory crackles at the right base, no wheezing. HEART: Showed normal S1 and S2, without murmurs. ABDOMEN: Soft, nontender. There was some redness in the left popliteal fossa. LABORATORY DATA: Initial findings included also a white cell count 8.5, hemoglobin 11.8, MCV 96, platelets 80 with 66% neutrophils, 1% bands, pH was 7.43, pCO2 of 29, pO2 of 98. She had associated hypoxemia and dyspnea and had to be placed on BiPAP, temperature on arrival was 100.7. Creatinine 0.94 with a sodium of 128. Urinalysis with 0-3 wbc's. Microbiology with group B Streptococcus in 2/2 sets of blood cultures. Currently, patient is sitting by the bedside. She has family members in the room with her. She is in no acute distress. She had a little bit of difficulty in place in the events in the proper sequence, needed help from family to get proper history. REVIEW OF SYSTEMS: Currently, patient denies headaches, no visual symptoms, sore throat, odynophagia or dysphagia, no chest pain. Dyspnea has improved markedly. No abdominal pain. She still has tenderness in the left popliteal fossa. No genitourinary symptoms noticeable. PAST MEDICAL HISTORY: Coronary artery disease, peripheral vascular disease with multiple procedures as noted previously. Left atrial myxoma, coronary bypass graft surgery, aortofemoral bypass, fem-pop bypass; left side. She had a redo bypass graft surgery, left carotid endarterectomy, hysterectomy. ALLERGIES: SULFA DRUGS with rash. SOCIAL HISTORY: Former smoker, . Drinks daily 6 ounces of wine. FAMILY HISTORY: Noncontributory. CURRENT MEDICATIONS: Include acetaminophen, Eliquis, Ecotrin, Lipitor, Coreg, cefepime, and Zetia. ALLERGIES: SULFA DRUGS. PHYSICAL EXAMINATION: VITAL SIGNS: T-max 98.7, blood pressure 120/79, pulse 65, respirations 14, and O2 sat 94% to 100%. SKIN: Shows this area of purplish discoloration of the swelling in the left popliteal fossa with mild to moderate tenderness. She has peripheral IV access and is voiding with a bedside commode. No lymphadenopathy. HEENT: Ocular movements conjugate. Oral cavity not remarkable. NECK: Supple, no jugular distention. LUNGS: Symmetric air entry with no crackles or wheezing. CARDIOVASCULAR: S1, S2, regular rate with a soft aortic murmur. ABDOMEN: Soft, nondistended or tender. The popliteal pulses 1+ in the left and right side. There is a possible mass with tenderness in the left popliteal fossa. Pulses are diminished in dorsalis pedis. Cap refill is less than 4 seconds. She is able to move extremities with no focal weakness. NEUROLOGIC: Cognitive function: She is awake and oriented, recognizes relatives, but she could not tell me exactly the date. LABORATORY AND X-RAY FINDINGS: White cell count is up to 15,000, hemoglobin 11 , platelets up to 141, 22% bands, 70% neutrophils. Sodium 130, creatinine 1.23 , GFR at 42. Urinalysis with 0-3 WBCs. Microbiology is noted. Chest x-ray shows small right-sided pleural effusion. CT angio of chest with no proximal segmental pulmonary arterial filling defect, cardiomegaly osseous demineralization. There was a dilated pulmonary artery suggesting pulmonary hypertension. ASSESSMENT: Coronary artery disease, significant peripheral vascular disease and multiple previous procedures and now with an area of inflammatory change in the left popliteal fossa with some bulging tenderness associated with group B strep bacteremia. DISCUSSION: Differential diagnosis includes cellulitis versus a possible vascular infection with pseudoaneurysm associated with the previous procedures with possibility of one of infection of one of the grafts in the abdominal area , particularly the aortofemoral graft. Infection of the fem-pop graft is not a concern. We will switch her to Rocephin once daily. Repeat blood cultures down the roads in the next few days, we will need imaging studies of the popliteal fossa and of the aortofemoral graft. The aortofemoral graft to be evaluated with CT scan of abdomen and pelvis whenever her creatinine improves. The popliteal fossa will start with an ultrasound, may need an MRI with contrast. Endocarditis is less likely. MTDD
[2018-07-04 06:36] LABS: #Lymphocytes 0.8 thou/uL (1.20-3.40); #Monocytes 0.6 thou/uL (0.11-0.59); #Neutrophils 7.1 thou/uL (1.40-6.50); %Basophils 0.4 % (0.0-1.0); %Eosinophils 0.5 % (0.0-10.0); %Lymphocytes 9.5 % (21.0-51.0); %Monocytes 7.3 % (0.0-10.0); %Neutrophils 82.2 % (42.0-75.0); Hemoglobin 12.7 g/dL (12.0-16.0); Mean Corpuscular HGB CONC 33.7 g/dL (32.0-36.0); Mean Corpuscular Hemoglobin 32.1 pg (27.0-31.0); Mean Corpuscular Volume 95.1 fL (78.0-98.0); Mean Platelet Volume 8.1 fL (7.4-10.4); Platelet Count 175 thou/uL (130-400); RBC Distribution Width 12.3 % (11.5-14.5); Red Blood Cell (RBC) Count 3.95 mill/uL (4.20-5.40); White Blood Cell (WBC) Count 8.6 thou/uL (4.8-10.8)
[2018-07-04 07:05] LABS: Anion Gap 13 mmol/L (10-20); BUN (Urea Nitrogen) 34 mg/dL (9.8-20.1); Calc. Creatinine Clearance 31 mL/min (70-130); Calcium 8.4 mg/dL (7.8-10.44); Carbon Dioxide 22 mmol/L (23-31); Chloride 100 mmol/L (98-107); Estimated GFR-MDRD 49; Glucose 87 mg/dL (83-110); Potassium 3.6 mmol/L (3.5-5.1); Sodium 131 mmol/L (136-145)
[2018-07-04] MEDS: Carvedilol 6.25 MG TAB PO SCH ×2 (08:27→17:57)
[2018-07-04] MEDS: Aspirin 81 mg Enteric Coated Tablet PO SCH (08:27)
[2018-07-04] MEDS: Apixaban 2.5 MG TAB PO SCH ×2 (08:27→21:43)
[2018-07-04] MEDS: Acetaminophen 325 MG TAB PO PRN (08:27)
[2018-07-04] MEDS ORDERED: Digoxin 0.125 MG TAB PO SCH (10:00)
--- NOTE | 2018-07-04 12:58 | PDOC.PN ---
- Subjective Encounter Start Date: 07/04/18 Encounter Start Time: 12:56 -: old records requested/rev Pt seen and examined, chart reviewed in its entirety. This is my first visit with this patient follow up for strep bacteremia,m sepsis and possible left popliteal cellulitis or abscess. Appreciate ID input No F/c, no N/V/D/C, no CP or SOB. all systems reviewed and neg x as per HPI. tolerating rocephin well, no itching or rash - Objective Resuscitation Status: Resuscitation Status FULL:Full Resuscitation MAR Reviewed: Yes Vital Signs & Weight: Vital Signs (12 hours) Temp Pulse Resp BP BP Pulse Ox 07/04/18 10:22 62 07/04/18 08:27 171/79 H 07/04/18 08:00 98.1 F 75 18 171/79 H 95 07/04/18 06:07 98 07/04/18 04:00 98.1 F 75 16 140/71 Weight Admit Weight 109 lb 2.061 oz Weight 100 lb 12.8 oz Most Recent Monitor Data Heart Rate from ECG 84 NIBP 103/67 NIBP BP-Mean 70 Respiration from ECG 23 SpO2 92 I&O: 07/03/18 07/04/18 07/05/18 06:59 06:59 06:59 Intake Total 1421 1600 Output Total 2260 900 Balance -839 700 Result Diagrams: 07/06/18 05:13 07/07/18 05:12 Radiology Reviewed by me: Yes EKG Reviewed by me: Yes Phys Exam - Physical Examination Constitutional: NAD HEENT: PERRLA, moist MMs, sclera anicteric, oral pharynx no lesions Neck: no nodes, no JVD, supple, full ROM Respiratory: no wheezing, no rales, no rhonchi, clear to auscultation bilateral Cardiovascular: RRR, no significant murmur, no rub Gastrointestinal: soft, non-tender, no distention, positive bowel sounds Musculoskeletal: no edema Neurological: non-focal, normal sensation, moves all 4 limbs Lymphatic: no nodes Psychiatric: normal affect, A&O x 3 Skin: no rash, cap refill <2 seconds Deviation from normal: redness to left popliteal area stable, no fluctuance Dx/Plan (1) Cellulitis and abscess of left leg Code(s): L03.116 - CELLULITIS OF LEFT LOWER LIMB; L02.416 - CUTANEOUS ABSCESS OF LEFT LOWER LIMB Status: Acute (2) Acute encephalopathy Code(s): G93.40 - ENCEPHALOPATHY, UNSPECIFIED Status: Acute Comment: resolving (3) Sepsis Code(s): A41.9 - SEPSIS, UNSPECIFIED ORGANISM Status: Acute Qualifiers: Sepsis type: Streptococcus group B Qualified Code(s): A40.1 - Sepsis due to streptococcus, group B (4) Streptococcal bacteremia Code(s): R78.81 - BACTEREMIA; B95.5 - UNSP STREPTOCOCCUS THE CAUSE OF DISEASES CLASSD ELSWHR Status: Acute (5) Chronic a-fib Code(s): I48.2 - CHRONIC ATRIAL FIBRILLATION Status: Chronic (6) HTN (hypertension) Code(s): I10 - ESSENTIAL (PRIMARY) HYPERTENSION Status: Chronic Qualifiers: Hypertension type: essential hypertension Qualified Code(s): I10 - Essential (primary) hypertension (7) Acute respiratory failure with hypoxia Code(s): J96.01 - ACUTE RESPIRATORY FAILURE WITH HYPOXIA Status: Resolved - Plan cont current plan of care, plan discussed w/ family, continue antibiotics, PT/OT , out of bed/ambulate * .
--- NOTE | 2018-07-04 16:27 | PRG ---
DATE OF SERVICE: 07/04/2018 SUBJECTIVE: Patient is sitting by the bedside. She has developed hypotension with systolic in the 70s. Denies any headaches, mild shortness of breath. No chest pain, no vomiting, no diarrhea, no bleeding. She had a new antihypertensive started today by Dr. Kaba, actually was not used as an antihypertensive, but more of afterload reducing agent. PHYSICAL EXAMINATION: VITAL SIGNS: Temperature max 98.1, blood pressure 170/79, pulse 62, respirations 18, O2 sat 95%. SKIN: Still shows the area of erythema behind the left knee in the popliteal fossa measuring about 2 cm, somewhat indurated and mildly tender. LUNGS: Clear. HEART: S1, S2, regular rate. ABDOMEN: Soft, not distended. LABORATORY DATA AND IMAGING DATA: White cell count is down to 8.6, hemoglobin 12.7, platelets 175 with 82% neutrophils. Sodium 131, creatinine 1.07. Soft tissue ultrasound demonstrates superficial soft tissue collection measuring 3.6 x 0.4 x 0.4 cm. ASSESSMENT: Coronary artery disease with peripheral vascular disease and an area of inflammatory change in left popliteal fossa with what appears to be an abscess there. May need surgical evaluation for debridement. Continue Rocephin. Transient hypotension may be associated with the new antihypertensive started. MTDD
[2018-07-04] MEDS: cefTRIAXone\\ROCEPHIN 2 GM in Sodium Chloride 0.9% 100 ML IVPB SCH (17:57)
[2018-07-04] MEDS: Ezetimibe 10 MG TAB PO SCH (21:43)
[2018-07-04] MEDS: Atorvastatin Calcium 40 MG TAB PO SCH (21:43)
[2018-07-05 06:43] LABS: #Eosinphils 0.1 thou/uL (0.0-0.7); #Monocytes 0.7 thou/uL (0.11-0.59); #Neutrophils 6.4 thou/uL (1.40-6.50); %Basophils 0.1 % (0.0-1.0); %Eosinophils 1.5 % (0.0-10.0); %Lymphocytes 11.8 % (21.0-51.0); %Monocytes 8.2 % (0.0-10.0); %Neutrophils 78.5 % (42.0-75.0); Hemoglobin 11.8 g/dL (12.0-16.0); Mean Corpuscular HGB CONC 33.4 g/dL (32.0-36.0); Mean Corpuscular Hemoglobin 31.8 pg (27.0-31.0); Mean Corpuscular Volume 95.3 fL (78.0-98.0); Platelet Count 184 thou/uL (130-400); RBC Distribution Width 12.3 % (11.5-14.5); Red Blood Cell (RBC) Count 3.72 mill/uL (4.20-5.40); White Blood Cell (WBC) Count 8.1 thou/uL (4.8-10.8)
[2018-07-05 06:47] LABS: Anion Gap 12 mmol/L (10-20); BUN (Urea Nitrogen) 26 mg/dL (9.8-20.1); Calc. Creatinine Clearance 36 mL/min (70-130); Calcium 8.3 mg/dL (7.8-10.44); Carbon Dioxide 24 mmol/L (23-31); Chloride 103 mmol/L (98-107); Estimated GFR-MDRD 60; Glucose 93 mg/dL (83-110); Magnesium 1.8 mg/dL (1.6-2.6); Potassium 3.8 mmol/L (3.5-5.1); Sodium 135 mmol/L (136-145)
[2018-07-05] MEDS: Carvedilol 6.25 MG TAB PO SCH ×2 (09:50→17:02)
[2018-07-05] MEDS: Digoxin 0.125 MG TAB PO SCH (09:51)
[2018-07-05] MEDS: Aspirin 81 mg Enteric Coated Tablet PO SCH (09:51)
[2018-07-05] MEDS: Apixaban 2.5 MG TAB PO SCH ×2 (09:51→21:23)
[2018-07-05] MEDS: cefTRIAXone\\ROCEPHIN 2 GM in Sodium Chloride 0.9% 100 ML IVPB SCH (17:09)
[2018-07-05] MEDS ORDERED: Sodium Chloride 0.9% 250 ML IV SCH (20:30)
[2018-07-05] MEDS: Atorvastatin Calcium 40 MG TAB PO SCH (21:23)
[2018-07-05] MEDS: Ezetimibe 10 MG TAB PO SCH (21:23)
[2018-07-05] MEDS ORDERED: Sodium Chloride 0.9% 250 ML 250 ML IV SCH (21:45)
[2018-07-06 05:44] LABS: #Eosinphils 0.2 thou/uL (0.0-0.7); #Lymphocytes 1.3 thou/uL (1.20-3.40); #Monocytes 0.8 thou/uL (0.11-0.59); #Neutrophils 6.4 thou/uL (1.40-6.50); %Basophils 0.2 % (0.0-1.0); %Eosinophils 2.2 % (0.0-10.0); %Lymphocytes 14.7 % (21.0-51.0); %Monocytes 8.7 % (0.0-10.0); %Neutrophils 74.3 % (42.0-75.0); Mean Corpuscular HGB CONC 32.8 g/dL (32.0-36.0); Mean Corpuscular Hemoglobin 31.7 pg (27.0-31.0); Mean Corpuscular Volume 96.6 fL (78.0-98.0); Mean Platelet Volume 7.7 fL (7.4-10.4); Platelet Count 173 thou/uL (130-400); RBC Distribution Width 12.1 % (11.5-14.5); Red Blood Cell (RBC) Count 3.49 mill/uL (4.20-5.40); White Blood Cell (WBC) Count 8.6 thou/uL (4.8-10.8)
[2018-07-06 05:55] LABS: Anion Gap 9 mmol/L (10-20); BUN (Urea Nitrogen) 21 mg/dL (9.8-20.1); Calc. Creatinine Clearance 39 mL/min (70-130); Calcium 8.3 mg/dL (7.8-10.44); Carbon Dioxide 26 mmol/L (23-31); Chloride 102 mmol/L (98-107); Estimated GFR-MDRD 66; Glucose 105 mg/dL (83-110); Magnesium 1.8 mg/dL (1.6-2.6); Potassium 4.1 mmol/L (3.5-5.1); Sodium 133 mmol/L (136-145)
[2018-07-06] MEDS: Apixaban 2.5 MG TAB PO SCH ×2 (09:55→22:44)
[2018-07-06] MEDS: Aspirin 81 mg Enteric Coated Tablet PO SCH (09:55)
[2018-07-06] MEDS: Digoxin 0.125 MG TAB PO SCH (09:55)
[2018-07-06] MEDS: Carvedilol 6.25 MG TAB PO SCH ×2 (10:01→18:31)
--- NOTE | 2018-07-06 14:36 | RAD ---
PORTABLE CHEST: 07/06/18 HISTORY: Dyspnea. COMPARISON: 07/03/18 study. Heart size is borderline with postop sternotomy change. Chronic appearing lung changes are seen witho ut focal infiltrates. IMPRESSION: Chronic lung change with borderline heart size, stable exam. POS: [facility]
[2018-07-06] MEDS: cefTRIAXone\\ROCEPHIN 2 GM in Sodium Chloride 0.9% 100 ML IVPB SCH (18:30)
[2018-07-06] MEDS: Atorvastatin Calcium 40 MG TAB PO SCH (22:44)
[2018-07-06] MEDS: Ezetimibe 10 MG TAB PO SCH (22:44)
--- NOTE | 2018-07-07 00:15 | CON ---
DATE OF CONSULTATION: 07/06/2018 REQUESTING PHYSICIAN: Brandon Sheppard M.D. CHIEF COMPLAINT: Swelling in the left popliteal fossa. HISTORY OF PRESENT ILLNESS: The patient is a 77-year-old woman who has undergone multiple cardiovasc ular procedures including lower extremity revascularization in the form of a 14 x 7 mm aortobifemoral bypass in 2003 and staged bilateral below knee outflow procedures utilizing reverse saphenous vein i n 2006. The patient was recently admitted to the hospital with several days of feeling sick. Her fa robb checked on her after tenriism and found her confused. On further questioning, they found out that she had been having "fevers on and off all week" and that she had fallen 3 times the evening before. They brought her to the emergency room where she was initially found to have O2 sats in the 80s and was febrile, although the patient does not currently remember giving this history. At the time of a dmission, she had reported some pain behind her left knee for a few days. The patient has since had two blood cultures that were positive for Strep agalactiae, which has dramatically improved on antibi otic therapy. She was noted to have some redness in the popliteal fossa at the time of admission and that apparently has since developed a more distinct area of erythema associated with some induration , though not true fluctuance. Ultrasonography suggested a very superficial fluid collection just bel ow the skin surface and some phlegmonous changes deep to that. I reviewed the ultrasonographic image s and did not see any obvious communication with the vasculature. PAST MEDICAL HISTORY: Significant also for coronary artery disease having undergone coronary artery bypass grafting and resection of a left atrial myxoma in 2001 and left carotid endarterectomy in 2012 . HOME MEDICATIONS: Include digoxin, aspirin, ranitidine, Coreg, Lipitor, Isordil, Zoloft, Micardis, Z etia and Eliquis. ALLERGIES: She reports an allergy to SULFA. SOCIAL HISTORY: She no longer smokes, but she does admit to drinking about 6 ounces of wine a day. REVIEW OF SYSTEMS: Negative for any claudication. PHYSICAL EXAMINATION: GENERAL: She is a thin woman, in no distress. She is 5 feet 2 inches and weighs 98-3/4 pounds. VITAL SIGNS: Temperature is 98.4, heart rate 77, blood pressure 127/59, room air sats are 95%. EXTREMITIES: She has palpable femoral, popliteal and posterior tibial pulses bilaterally. She has a palpable right dorsalis pedis pulse. I was not able to feel the left dorsalis pedis. She has well- healed surgical scars for pretty much the length of her leg from vein harvests. She has about a 2-cm indurated area in the left popliteal fossa that is red. There was a pulse palpable there, but it mi rror images the easily palpable pulse in the right popliteal. The ultrasound is as above. LABORATORY DATA: Most recent white count is 8.6, hemoglobin 11.0, hematocrit 33.7 and platelet count of 173,000. Her electrolytes are essentially normal. BUN 21, creatinine 0.83. IMPRESSION AND RECOMMENDATIONS: At this point, I do not think there is anything to drain and I am do ubtful that this swollen area in her left popliteal fossa will prove to communicate with the vasculat ure. My original plan had been to get either a CT with contrast or even a CTA, but the radiologist f radhals that an MRI is more apt to give adequate detail of this area, so I will proceed with that.
[2018-07-07 05:59] LABS: Anion Gap 9 mmol/L (10-20); BUN (Urea Nitrogen) 13 mg/dL (9.8-20.1); Calc. Creatinine Clearance 41 mL/min (70-130); Calcium 8.6 mg/dL (7.8-10.44); Carbon Dioxide 28 mmol/L (23-31); Chloride 101 mmol/L (98-107); Estimated GFR-MDRD 71; Glucose 93 mg/dL (83-110); Magnesium 1.7 mg/dL (1.6-2.6); Potassium 4.3 mmol/L (3.5-5.1); Sodium 134 mmol/L (136-145)
[2018-07-07] MEDS: Digoxin 0.125 MG TAB PO SCH (08:33)
[2018-07-07] MEDS: Aspirin 81 mg Enteric Coated Tablet PO SCH (08:33)
[2018-07-07] MEDS: Carvedilol 6.25 MG TAB PO SCH (08:33)
[2018-07-07] MEDS: Apixaban 2.5 MG TAB PO SCH ×2 (09:58→20:48)
[2018-07-07] MEDS ORDERED: Sodium Chloride 0.9% 500 ML IVPB SCH (10:30)
[2018-07-07 12:19] VITALS: BMI 17.7
--- NOTE | 2018-07-07 13:42 | PDOC.PN ---
- Subjective Encounter Start Date: 07/05/18 Encounter Start Time: 15:00 pt got hypotensive last evening, given fluid bolus, and leveled out. BP better this AM, but became hypotensive again Seen by ID, plan outlined. Dr Noe to consult surgery NO F/c, no N/V/d/c, no Cp or sOB all systems reviewed and neg x as above - Objective Resuscitation Status: Resuscitation Status FULL:Full Resuscitation MAR Reviewed: Yes Vital Signs & Weight: Vital Signs (12 hours) Temp Pulse Resp BP BP Pulse Ox 07/07/18 11:59 98.0 F 64 17 90/59 L 96 07/07/18 08:22 98.2 F 87 17 128/93 H 98 07/07/18 04:00 98 F 74 24 H 110/69 96 Weight Admit Weight 109 lb 2.061 oz Weight 97 lb Most Recent Monitor Data Heart Rate from ECG 84 NIBP 103/67 NIBP BP-Mean 70 Respiration from ECG 23 SpO2 92 I&O: 07/06/18 07/07/18 07/08/18 06:59 06:59 06:59 Intake Total 850 1050 Output Total 800 1600 Balance 50 -550 Result Diagrams: 07/06/18 05:13 07/07/18 05:12 Phys Exam - Physical Examination Constitutional: NAD HEENT: PERRLA, moist MMs, oral pharynx no lesions Neck: no nodes, no JVD, supple, full ROM Respiratory: no wheezing, no rales, no rhonchi, clear to auscultation bilateral Cardiovascular: RRR, no significant murmur Gastrointestinal: soft, non-tender, no distention, positive bowel sounds Musculoskeletal: no edema, pulses present Neurological: non-focal, normal sensation, moves all 4 limbs Lymphatic: no nodes Psychiatric: normal affect, A&O x 3 Skin: no rash, normal turgor, cap refill <2 seconds Deviation from normal: left popliteral rednesss better, no fluctuance. no drainage Dx/Plan (1) Cellulitis and abscess of left leg Code(s): L03.116 - CELLULITIS OF LEFT LOWER LIMB; L02.416 - CUTANEOUS ABSCESS OF LEFT LOWER LIMB Status: Acute Comment: CCM wut abx, BCx with Grp C Strep , on rocephin, ID to see. (2) Acute encephalopathy Code(s): G93.40 - ENCEPHALOPATHY, UNSPECIFIED Status: Acute Comment: resolving (3) Sepsis Code(s): A41.9 - SEPSIS, UNSPECIFIED ORGANISM Status: Acute Qualifiers: Sepsis type: Streptococcus group B Qualified Code(s): A40.1 - Sepsis due to streptococcus, group B (4) Streptococcal bacteremia Code(s): R78.81 - BACTEREMIA; B95.5 - UNSP STREPTOCOCCUS THE CAUSE OF DISEASES CLASSD ELSWHR Status: Acute (5) Chronic a-fib Code(s): I48.2 - CHRONIC ATRIAL FIBRILLATION Status: Chronic (6) HTN (hypertension) Code(s): I10 - ESSENTIAL (PRIMARY) HYPERTENSION Status: Chronic Qualifiers: Hypertension type: essential hypertension Qualified Code(s): I10 - Essential (primary) hypertension (7) Acute respiratory failure with hypoxia Code(s): J96.01 - ACUTE RESPIRATORY FAILURE WITH HYPOXIA Status: Resolved - Plan * .
--- NOTE | 2018-07-07 13:46 | PDOC.PN ---
- Subjective Encounter Start Date: 07/06/18 Encounter Start Time: 09:45 Pt feeling better, still hypotensive in the afternoon, largely not symptomatic when lying, no F/c, no N/V/d/c. seen by ID, U/S reviewed, surgery consulted by me today, follow up on recs. No F/c, no n/V/D/C, no CP or SOB, redness and swelling to LLE improved al systems reviewed and nwg x as above - Objective Resuscitation Status: Resuscitation Status FULL:Full Resuscitation MAR Reviewed: Yes Vital Signs & Weight: Vital Signs (12 hours) Temp Pulse Resp BP BP Pulse Ox 07/07/18 11:59 98.0 F 64 17 90/59 L 96 07/07/18 08:22 98.2 F 87 17 128/93 H 98 07/07/18 04:00 98 F 74 24 H 110/69 96 Weight Admit Weight 109 lb 2.061 oz Weight 97 lb Most Recent Monitor Data Heart Rate from ECG 84 NIBP 103/67 NIBP BP-Mean 70 Respiration from ECG 23 SpO2 92 I&O: 07/06/18 07/07/18 07/08/18 06:59 06:59 06:59 Intake Total 850 1050 Output Total 800 1600 Balance 50 -550 Result Diagrams: 07/06/18 05:13 07/07/18 05:12 Phys Exam - Physical Examination Constitutional: NAD HEENT: PERRLA, moist MMs, sclera anicteric, oral pharynx no lesions Neck: no nodes, no JVD, supple, full ROM Respiratory: no wheezing, no rales, no rhonchi, clear to auscultation bilateral Cardiovascular: RRR, no significant murmur, no rub Gastrointestinal: soft, non-tender, no distention, positive bowel sounds Musculoskeletal: edema present Neurological: non-focal, normal sensation, moves all 4 limbs Lymphatic: no nodes Psychiatric: normal affect, A&O x 3 Skin: no rash, normal turgor, cap refill <2 seconds Deviation from normal: left popliteal redness a little better Dx/Plan (1) Cellulitis and abscess of left leg Code(s): L03.116 - CELLULITIS OF LEFT LOWER LIMB; L02.416 - CUTANEOUS ABSCESS OF LEFT LOWER LIMB Status: Acute Comment: CCM wut abx, BCx with Grp C Strep , on rocephin, ID recommended surgery consult but not ordered, will consult them now. (2) Acute encephalopathy Code(s): G93.40 - ENCEPHALOPATHY, UNSPECIFIED Status: Acute Comment: resolving (3) Sepsis Code(s): A41.9 - SEPSIS, UNSPECIFIED ORGANISM Status: Acute Qualifiers: Sepsis type: Streptococcus group B Qualified Code(s): A40.1 - Sepsis due to streptococcus, group B (4) Streptococcal bacteremia Code(s): R78.81 - BACTEREMIA; B95.5 - UNSP STREPTOCOCCUS THE CAUSE OF DISEASES CLASSD ELSWHR Status: Acute (5) Chronic a-fib Code(s): I48.2 - CHRONIC ATRIAL FIBRILLATION Status: Chronic (6) HTN (hypertension) Code(s): I10 - ESSENTIAL (PRIMARY) HYPERTENSION Status: Chronic Qualifiers: Hypertension type: essential hypertension Qualified Code(s): I10 - Essential (primary) hypertension (7) Acute respiratory failure with hypoxia Code(s): J96.01 - ACUTE RESPIRATORY FAILURE WITH HYPOXIA Status: Resolved - Plan * .
--- NOTE | 2018-07-07 14:59 | PDOC.PN ---
- Subjective Encounter Start Date: 07/07/18 Encounter Start Time: 14:10 Pt doing well. Seen by [facility] - Dr Howard, last evening, no overt surgical indication, MRI ordered and pending No fevers or chills, no N/V/D/c, no CP or sOB, no family at bedside All systems reviewed and neg x as above - Objective Resuscitation Status: Resuscitation Status FULL:Full Resuscitation MAR Reviewed: Yes Vital Signs & Weight: Vital Signs (12 hours) Temp Pulse Resp BP BP Pulse Ox 07/07/18 11:59 98.0 F 64 17 90/59 L 96 07/07/18 08:40 96 07/07/18 08:22 98.2 F 87 17 128/93 H 98 07/07/18 04:00 98 F 74 24 H 110/69 96 Weight Admit Weight 109 lb 2.061 oz Weight 97 lb Most Recent Monitor Data Heart Rate from ECG 84 NIBP 103/67 NIBP BP-Mean 70 Respiration from ECG 23 SpO2 92 I&O: 07/06/18 07/07/18 07/08/18 06:59 06:59 06:59 Intake Total 850 1050 Output Total 800 1600 Balance 50 -550 Result Diagrams: 07/06/18 05:13 07/07/18 05:12 Phys Exam - Physical Examination Constitutional: NAD HEENT: PERRLA, moist MMs, sclera anicteric, oral pharynx no lesions Neck: no nodes, no JVD, supple, full ROM Respiratory: no wheezing, no rales, no rhonchi, clear to auscultation bilateral Cardiovascular: RRR, no significant murmur, no rub Gastrointestinal: soft, non-tender, no distention, positive bowel sounds Musculoskeletal: no edema Neurological: non-focal, normal sensation, moves all 4 limbs Lymphatic: no nodes Psychiatric: normal affect, A&O x 3 Skin: no rash, normal turgor, cap refill <2 seconds Deviation from normal: left popliteal redness improved Dx/Plan (1) Cellulitis and abscess of left leg Code(s): L03.116 - CELLULITIS OF LEFT LOWER LIMB; L02.416 - CUTANEOUS ABSCESS OF LEFT LOWER LIMB Status: Acute Comment: CCM wut abx, BCx with Grp C Strep , on rocephin, ID recommended surgery consulted, but no current surgical intervention needed, follow up on MRI results, contoinue abx (2) Acute encephalopathy Code(s): G93.40 - ENCEPHALOPATHY, UNSPECIFIED Status: Acute Comment: resolving (3) Sepsis Code(s): A41.9 - SEPSIS, UNSPECIFIED ORGANISM Status: Acute Qualifiers: Sepsis type: Streptococcus group B Qualified Code(s): A40.1 - Sepsis due to streptococcus, group B (4) Streptococcal bacteremia Code(s): R78.81 - BACTEREMIA; B95.5 - UNSP STREPTOCOCCUS THE CAUSE OF DISEASES CLASSD ELSWHR Status: Acute Comment: repeat Bcx today (5) Chronic a-fib Code(s): I48.2 - CHRONIC ATRIAL FIBRILLATION Status: Chronic (6) HTN (hypertension) Code(s): I10 - ESSENTIAL (PRIMARY) HYPERTENSION Status: Chronic Qualifiers: Hypertension type: essential hypertension Qualified Code(s): I10 - Essential (primary) hypertension (7) Acute respiratory failure with hypoxia Code(s): J96.01 - ACUTE RESPIRATORY FAILURE WITH HYPOXIA Status: Resolved - Plan * .
[2018-07-07] MEDS: cefTRIAXone\\ROCEPHIN 2 GM in Sodium Chloride 0.9% 100 ML IVPB SCH (16:25)
[2018-07-07] MEDS: Ezetimibe 10 MG TAB PO SCH (20:48)
[2018-07-07] MEDS: Atorvastatin Calcium 40 MG TAB PO SCH (20:48)
[2018-07-08] MEDS: Aspirin 81 mg Enteric Coated Tablet PO SCH (08:16)
[2018-07-08] MEDS: Apixaban 2.5 MG TAB PO SCH ×2 (08:16→20:57)
[2018-07-08] MEDS: Digoxin 0.125 MG TAB PO SCH (08:16)
[2018-07-08] MEDS ORDERED: Carvedilol 3.125 MG TAB PO SCH ×2 (09:33→11:15)
--- NOTE | 2018-07-08 10:25 | CT ---
CT ANGIOGRAM OF THE LEFT LOWER EXTREMITY: HISTORY: Possible mass or abscess behind the knee. Evaluate for possible surgery. COMPARISON: None. TECHNIQUE: Limited CT angiogram of the left knee was performed in the axial plane. Reformatted images are submi tted for interpretation. FINDINGS: The visualized osseous structures are unremarkable. There is a small amount of joint fluid present. There is a small amount of fluid along the infrapatellar tendon. There is evidence of a previous arterial bypass. Specifically, there appears to be anastomosis of th e common peroneal artery with a saphenous graft which bypasses a thrombosed and severely calcified po pliteal artery. The proximal anastomosis is not included on this examination. With regard to the po pliteal fossa, there is some induration and fluid present. A Menchaca's cyst is not appreciated. A def inable abscess is not appreciated. Induration of the popliteal fossa fat is nonspecific. Surgical c lips, compatible with bypass, are noted. 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 There has been an arteriovenous bypass graft placed. The distal anastomotic is between th e saphenous vein graft and the common peroneal trunk . The proximal anastomosis is not included on t his examination. There is no evidence of a mass or abscess in the popliteal fossa. Induration of th e popliteal fossa fat is nonspecific. POS: [facility]
[2018-07-08] MEDS ORDERED: Iopamidol 370 76% 100 ML VIAL ONE (12:01)
[2018-07-08] MEDS: cefTRIAXone\\ROCEPHIN 2 GM in Sodium Chloride 0.9% 100 ML IVPB SCH (16:58)
[2018-07-08] MEDS: Carvedilol 3.125 MG TAB PO SCH (17:00)
[2018-07-08] MEDS ORDERED: Sodium Chloride 0.9% 10 ML ONE (20:36)
[2018-07-08] MEDS: Acetaminophen 325 MG TAB PO PRN (20:56)
[2018-07-08] MEDS: Atorvastatin Calcium 40 MG TAB PO SCH (20:56)
[2018-07-08] MEDS: Ezetimibe 10 MG TAB PO SCH (20:57)
[2018-07-09] MEDS ORDERED: Sodium Chloride 0.9% 250 ML IVPB SCH (00:30)
[2018-07-09] MEDS ORDERED: Sodium Chloride 0.9% 250 ML IVPB PRN (01:00)
[2018-07-09 06:02] LABS: Hemoglobin 10.8 g/dL (12.0-16.0); Platelet Count 226 thou/uL (130-400)
[2018-07-09] MEDS: Aspirin 81 mg Enteric Coated Tablet PO SCH (09:07)
[2018-07-09] MEDS: Apixaban 2.5 MG TAB PO SCH ×2 (09:07→20:57)
[2018-07-09] MEDS: Carvedilol 3.125 MG TAB PO SCH ×2 (09:08→16:27)
[2018-07-09] MEDS: Digoxin 0.125 MG TAB PO SCH (09:08)
--- NOTE | 2018-07-09 09:26 | PDOC.CTH ---
<Marian Caruso - Last Filed: 07/09/18 09:22> Cardiology Progress Note - Subjective Feels ok. No new complaints today. - Objective Vital Signs Temp Pulse Resp BP Pulse Ox 07/09/18 09:08 62 120/78 07/09/18 07:40 98 F 71 18 119/71 96 18 05:19 97 07/09/18 04:21 97.7 F 67 16 106/72 97 07/09/18 01:23 73 16 107/62 07/08/18 23:55 97.6 F 68 16 82/52 L 94 L Admit Weight 109 lb 2.061 oz Weight 92 lb 07/08/18 07/09/18 07/10/18 06:59 06:59 06:59 Intake Total 1700 1340 Output Total 3800 1000 Balance -2100 340 - Physical Examination General/Neuro: alert & oriented x3 Neck: no JVD present Lungs: CTA Heart: other: (IRR) Abdomen: NT/ND Extremities: other: (No edema; decreased pedal pulses) - Telemetry Telemetry Rhythm: AF - Labs Result Diagrams: 07/09/18 05:23 07/09/18 05:23 Troponin/CKMB CK-MB (CK-2) 1.8 ng/mL (0-6.6) 07/01/18 15:30 Troponin I 0.049 ng/mL (< 0.028) H 07/01/18 21:43 - Assessment/Plan 1. Hypotension 2. Sepsis 3. CAD 4. Chronic AF 5. Severe PAD Coreg and Imdur decreased yesterday. Continue antibiotics. If BP stabilizes today transfer to med as she is off tele. <Leoncio Rosenberg - Last Filed: 07/09/18 14:41> Cardiology Progress Note - Objective Vital Signs Temp Pulse Resp BP Pulse Ox 07/09/18 11:25 97.6 F 66 18 97/62 97 07/09/18 09:08 62 120/78 07/09/18 08:00 96 07/09/18 07:40 98 F 71 18 119/71 96 18 05:19 97 07/09/18 04:21 97.7 F 67 16 106/72 97 Admit Weight 109 lb 2.061 oz Weight 92 lb 0907/09/18 07/10/18 06:59 06:59 06:59 Intake Total 1700 1340 210 Output Total 3800 1000 Balance -2100 340 210 - Labs Result Diagrams: 07/09/18 05:23 07/09/18 05:23 Troponin/CKMB CK-MB (CK-2) 1.8 ng/mL (0-6.6) 07/01/18 15:30 Troponin I 0.049 ng/mL (< 0.028) H 07/01/18 21:43 - Assessment/Plan Pt seen and examined. Agree with above.
--- NOTE | 2018-07-09 11:31 | EKG ---
Test Reason : Blood Pressure : / mmHG Vent. Rate : 086 BPM Atrial Rate : 086 BPM P-R Int : 166 ms QRS Dur : 134 ms QT Int : 370 ms P-R-T Axes : 085 005 038 degrees QTc Int : 442 ms Normal sinus rhythm Right bundle branch block Abnormal ECG Confirmed by NEHEMIAH MORENO, LORRIE ([id number]), editorial cartoonist BRIGHT HENDERSON ([id number]) on 07/09/2018 11:30:49 AM Referred By: Confirmed By:LORRIE CERNA MD
[2018-07-09] MEDS ORDERED: Sodium Chloride 0.9% 500 ML IVPB SCH (16:45)
[2018-07-09] MEDS: cefTRIAXone\\ROCEPHIN 2 GM in Sodium Chloride 0.9% 100 ML IVPB SCH (16:59)
[2018-07-09] MEDS ORDERED: Sodium Chloride 0.9% 10 ML ONE (20:04)
[2018-07-09] MEDS: Atorvastatin Calcium 40 MG TAB PO SCH (20:57)
[2018-07-09] MEDS: Ezetimibe 10 MG TAB PO SCH (20:57)
[2018-07-09] MEDS: Acetaminophen 325 MG TAB PO PRN (23:51)
[2018-07-10] MEDS: Apixaban 2.5 MG TAB PO SCH (09:28)
[2018-07-10] MEDS: Aspirin 81 mg Enteric Coated Tablet PO SCH (09:29)
[2018-07-10] MEDS: Digoxin 0.125 MG TAB PO SCH (09:29)
[2018-07-10] MEDS: Carvedilol 3.125 MG TAB PO SCH (09:29)
--- NOTE | 2018-07-10 09:43 | PDOC.CTH ---
<Marian Caruso - Last Filed: 07/10/18 09:41> Cardiology Progress Note - Subjective Patient without complaint. Called yesterday at 1558 by nurse and notified BP 60/40mmHg. Fluid bolus given and Micardis and ImDur stopped. BP stable today. - Objective Vital Signs Temp Pulse Resp BP Pulse Ox 07/10/18 09:30 117/79 07/10/18 09:29 86 07/10/18 07:45 97.8 F 80 16 125/89 95 07/10/18 03:44 97.9 F 65 18 119/74 95 07/10/18 00:00 98.1 F 73 18 109/65 96 Admit Weight 109 lb 2.061 oz Weight 92 lb 3.2 oz 07/09/18 07/10/18 07/11/18 06:59 06:59 06:59 Intake Total 1340 1770 Output Total 1000 1200 Balance 340 570 - Physical Examination General/Neuro: alert & oriented x3 Neck: no JVD present Lungs: CTA Heart: other: (IRR, IRR) Abdomen: NT/ND Extremities: other: (decreased pedal pulses) - Telemetry Telemetry Rhythm: No tele - Labs Result Diagrams: 07/09/18 05:23 07/09/18 05:23 Troponin/CKMB CK-MB (CK-2) 1.8 ng/mL (0-6.6) 07/01/18 15:30 Troponin I 0.049 ng/mL (< 0.028) H 07/01/18 21:43 - Assessment/Plan 1. Hypotension 2. Sepsis 3. CAD 4. Chronic AF 5. Severe PAD BP improved off Micardis and ImDur. Hypotension could be associated with sepsis. Will continue to hold meds for now and possibly resume in the future. Continue Coreg. <Leoncio Rosenberg - Last Filed: 07/10/18 14:07> Cardiology Progress Note - Objective Vital Signs Temp Pulse Resp BP Pulse Ox 07/10/18 11:15 98.1 F 87 18 102/68 96 07/10/18 09:30 117/79 07/10/18 09:29 86 07/10/18 08:00 96 07/10/18 07:45 97.8 F 80 16 125/89 95 07/10/18 03:44 97.9 F 65 18 119/74 95 Admit Weight 109 lb 2.061 oz Weight 92 lb 3.2 oz 07/09/18 07/10/18 07/11/18 06:59 06:59 06:59 Intake Total 1340 1770 100 Output Total 1000 1200 Balance 340 570 100 - Labs Result Diagrams: 07/09/18 05:23 07/09/18 05:23 Troponin/CKMB CK-MB (CK-2) 1.8 ng/mL (0-6.6) 07/01/18 15:30 Troponin I 0.049 ng/mL (< 0.028) H 07/01/18 21:43 - Assessment/Plan Agree with sepsis and hypotension. Pt may have little reserve and when combined with anti-hypertensive meds, may exacerbate it. Hold BP meds.
[2018-07-10 16:47] VITALS: BP 124/57; TEMP 98
== END 2018-07-10 17:00 | disposition home health service (06) | DRG 871 ==
LOC: ERS 14:49 → ERHOLD 18:13 → CCU 21:42 → 2NO 07-02 14:11
PROVIDERS: ADMIT Internal Medicine; ATTEND Internal Medicine
PROC: 5A09357 Assistance with Respiratory Ventilation, Less than 24 Consecutive Hours, Continuous Positive Airway Pressure (ICD-10-PCS; principal; 2018-07-01)
DX: A40.9 Streptococcal sepsis, unspecified (principal); J18.9 Pneumonia, unspecified organism; J96.01 Acute respiratory failure with hypoxia; G93.41 Metabolic encephalopathy; R65.21 Severe sepsis with septic shock; E87.1 Hypo-osmolality and hyponatremia; L02.416 Cutaneous abscess of left lower limb; N17.9 Acute kidney failure, unspecified; L03.116 Cellulitis of left lower limb; Z95.0 Presence of cardiac pacemaker; Z95.2 Presence of prosthetic heart valve; I25.10 Atherosclerotic heart disease of native coronary artery without angina pectoris; I48.2 Chronic atrial fibrillation; Z95.1 Presence of aortocoronary bypass graft; Z88.2 Allergy status to sulfonamides; Z87.891 Personal history of nicotine dependence; Z79.899 Other long term (current) drug therapy; Z79.01 Long term (current) use of anticoagulants; I50.9 Heart failure, unspecified; I11.0 Hypertensive heart disease with heart failure; R65.20 Severe sepsis without septic shock; B95.5 Unspecified streptococcus as the cause of diseases classified elsewhere; I95.9 Hypotension, unspecified
CPT/HCPCS: 36415; 51701; 71045; 71275; 76999; 80048; 80053; 80162; 81003; 81015; 82553; 82565; 82805; 83605; 83690; 83735; 83880; 83930; 83935; 84145; 84300; 84484; 85014; 85018; 85025; 85049; 85379; 87040; 87077; 87149; 87186; 90471; 90670; 93005; 93306; 93798; 94660; 96365; 96367; 96375; A4216; A4353; G0009; G8978-GP-CJ; G8979-GP-CI; J0692; J0696; J1100; J1250; J1940; J1956; J2185; J3475; J7050

== ENCOUNTER 2020-01-03 09:14 | Day surgery (SDC) | payer MEDICARE ==
[2020-01-02 11:47] VITALS: BMI 16.2
[2020-01-03 10:11] LABS: INR-International Normal Ratio 1.4; Prothrombin Time 17.1 SEC (12.0-14.7)
[2020-01-03 10:12] LABS: PTT 40.9 SEC (22.9-36.1)
[2020-01-03 10:23] LABS: Anion Gap 12 mmol/L (10-20); BUN (Urea Nitrogen) 18 mg/dL (9.8-20.1); Calc. Creatinine Clearance 26 mL/min (70-130); Calcium 9.5 mg/dL (7.8-10.44); Carbon Dioxide 29 mmol/L (23-31); Chloride 105 mmol/L (98-107); Estimated GFR-MDRD 45; Glucose 96 mg/dL (83-110); Potassium 3.7 mmol/L (3.5-5.1); Sodium 142 mmol/L (136-145)
[2020-01-03] MEDS ORDERED: PROPOFOL 20 ML ONE (10:39)
--- NOTE | 2020-01-03 12:24 | OP ---
DATE OF PROCEDURE: 01/03/2020 PROCEDURE PERFORMED: Transesophageal echo. INDICATION FOR PROCEDURE: This is an 79-year-old woman with paroxysmal atrial fibrillation. DESCRIPTION OF PROCEDURE: The patient was taken to the PACU. The patient was sedated by Anesthesiology. A transesophageal probe was placed into the distal esophagus and stomach. Echocardiographic images were obtained. The transesophageal probe was removed. FINDINGS: 1. Normal left ventricular systolic function. 2. Biatrial enlargement. 3. Moderate mitral regurgitation. 4. Moderate severe tricuspid regurgitation. 5. Normal mitral and aortic valves. 6. No thrombus in left atrium or left atrial appendage. 7. Atherosclerotic debris in the descending aorta. IMPRESSION: No formed thrombus in left atrium or left atrial appendage. MTDD
--- NOTE | 2020-01-03 15:10 | OP ---
DATE OF PROCEDURE: 01/03/2020 PROCEDURE PERFORMED: Electrocardioversion. INDICATION: Yogi Frey is an 79-year-old woman with paroxysmal atrial fibrillation. DESCRIPTION OF PROCEDURE: The patient was taken to the PACU. The patient was shocked with 200 joules of synchronized electricity. The patient was converted to normal sinus rhythm. IMPRESSION: Successful electrocardioversion. Job ID: [id number] MTDD
== END 2020-01-03 12:46 | disposition home or self-care (01) ==
LOC: CCL 09:14
PROVIDERS: ATTEND Internal Medicine Cardiovascular Disease
PROC: B24BZZ4 Ultrasonography of Heart with Aorta, Transesophageal (ICD-10-PCS; principal; 2020-01-03)
PROC: 5A2204Z Restoration of Cardiac Rhythm, Single (ICD-10-PCS; 2020-01-03)
DX: I48.0 Paroxysmal atrial fibrillation (principal); I08.1 Rheumatic disorders of both mitral and tricuspid valves; I70.0 Atherosclerosis of aorta; I10 Essential (primary) hypertension; F32.9 Major depressive disorder, single episode, unspecified; E78.00 Pure hypercholesterolemia, unspecified; I25.10 Atherosclerotic heart disease of native coronary artery without angina pectoris; E78.2 Mixed hyperlipidemia; M81.0 Age-related osteoporosis without current pathological fracture; K21.9 Gastro-esophageal reflux disease without esophagitis; Z79.01 Long term (current) use of anticoagulants; Z79.82 Long term (current) use of aspirin; Z79.899 Other long term (current) drug therapy; Z88.2 Allergy status to sulfonamides; Z88.8 Allergy status to other drugs, medicaments and biological substances; Z95.1 Presence of aortocoronary bypass graft
CPT/HCPCS: 36415; 80048; 85610; 85730; 92960; 93005; 93010; 93312; J2704

== ENCOUNTER 2020-06-20 07:53 | Outpatient (CLI) | payer MEDICARE ==
--- NOTE | 2020-06-20 09:13 | ULT ---
ULTRASOUND GALLBLADDER RIGHT UPPER QUADRANT: HISTORY: Abdominal pain, abnormal LFTs. COMPARISON: None. FINDINGS: Real-time, winkler scale, and color evaluation of the right upper quadrant of the abdomen was performed. Visualized portions of the aorta and pancreas are unremarkable. The IVC is dilated. Hepatic echotexture is normal. No hepatic mass. Liver measures 12.5 cm in length. Portal vein helton nt with antegrade flow. The common bile ducts look normal measuring 3 mm. The gallbladder is normal. No pericholecystic inflammation. No cholelithiasis. The right kidney measures 9.4 x 4.1 x 4.2 cm without mass, hydronephrosis, or abnormal calcifications . IMPRESSION: 1. No cholelithiasis or cholecystitis. 2. Normal hepatic echotexture. 3. Dilated inferior vena cava suggesting increased right heart pressures. POS: [facility]
== END 2020-06-20 07:54 | disposition home or self-care (01) ==
LOC: BICULT 07:53
PROVIDERS: ATTEND Nurse Practitioner Family
DX: R94.5 Abnormal results of liver function studies (principal)
CPT/HCPCS: 76705

== ENCOUNTER 2021-07-17 10:36 | Outpatient (CLI) | payer MEDICARE ==
[2021-07-17 12:52] LABS: #Eosinphils 0.1 10x3/uL (0.0-0.5); #Monocytes 0.3 10x3/uL (0.0-1.1); #Neutrophils 1.9 10x3/uL (1.5-8.4); %Basophils 1.3 % (0.0-2.0); %Eosinophils 2.6 % (0.0-6.0); %Lymphocytes 24.8 % (18.0-47.0); %Monocytes 9.8 % (0.0-10.0); %Neutrophils 61.2 % (40.0-75.0); Hemoglobin 12.3 g/dL (12.0-15.5); Mean Corpuscular HGB CONC 32.8 g/dL (32.0-36.0); Mean Corpuscular Hemoglobin 30.8 pg (27.0-33.0); Mean Platelet Volume 11.4 fl (7.4-10.4); Platelet Count 92 10x3/uL (150-450); RBC Distribution Width 15.1 % (11.5-14.5); Red Blood Cell (RBC) Count 3.99 10x6/uL (3.90-5.03); White Blood Cell (WBC) Count 3.1 10x3/uL (3.5-10.5)
[2021-07-17 13:13] LABS: INR-International Normal Ratio 1.1; PTT 29.2 sec (22.0-33.0); Prothrombin Time 12.3 sec (9.5-12.1)
[2021-07-17 13:49] LABS: Anion Gap 15 mmol/L (10-20); BUN (Urea Nitrogen) 24 mg/dL (9.8-20.1); Calc. Creatinine Clearance 0 mL/min (70-130); Calcium 9.9 mg/dL (7.8-10.44); Carbon Dioxide 26 mmol/L (23-31); Chloride 104 mmol/L (98-107); Glucose 95 mg/dL (83-110); Potassium 3.6 mmol/L (3.5-5.1); Sodium 141 mmol/L (136-145)
[2021-07-17 14:25] LABS: Platelet Morphology Comment Appears Decreased; RBC Morphology Normal
[2021-07-18 08:52] LABS: SARS-CoV-2 PCR by NAA Not Detected (NotDetected)
== END 2021-07-17 10:37 | disposition home or self-care (01) ==
LOC: LABBT 10:36
PROVIDERS: ATTEND Internal Medicine Cardiovascular Disease
DX: Z01.812 Encounter for preprocedural laboratory examination (principal); I48.91 Unspecified atrial fibrillation; Z20.822 Contact with and (suspected) exposure to COVID-19
CPT/HCPCS: 80048; 85025; 85610; 85730; U0003; U0005

== ENCOUNTER 2021-08-09 19:51 | Inpatient (IN) | payer MEDICARE ==
[2021-08-09] MEDS ORDERED: Vancomycin 1 GM/200 ML BAG ONE (21:04)
[2021-08-09 21:16] LABS: Bacteria/HPF None Seen HPF (None Seen); Bilirubin Negative (Negative); Blood, Urine 3+ (Negative); Clarity Clear (Clear); Glucose, Urine (Dipstick) Normal (Negative); Ketone, Urine Negative (Negative); Leukocyte 25 Leu/uL (Negative); Nitrite Negative (Negative); Protein, Urine (Dipstick) 30 mg/dL (Neg-Trace); RBC/HPF Greater than 50 HPF (0-3); Squamous Epithelial 0-3 HPF (0-3)
[2021-08-09 21:18] LABS: ALT (SGPT) 41 U/L (8-55); AST (SGOT) 96 U/L (5-34); Albumin 3.8 g/dL (3.4-4.8); Alkaline Phosphatase 87 U/L (40-110); Anion Gap 15 mmol/L (10-20); BUN (Urea Nitrogen) 19 mg/dL (9.8-20.1); Bilirubin, Total 1.7 mg/dL (0.2-1.2); Calc. Creatinine Clearance 0 mL/min (70-130); Calcium 9.6 mg/dL (7.8-10.44); Carbon Dioxide 26 mmol/L (23-31); Chloride 104 mmol/L (98-107); Globulin 3.1 g/dL (2.4-3.5); Glucose 94 mg/dL (83-110); Potassium 3.6 mmol/L (3.5-5.1); Protein, Total 6.9 g/dL (5.8-8.1); Sodium 141 mmol/L (136-145)
[2021-08-09 21:21] LABS: #Lymphocytes 0.8 thou/uL (1.20-3.40); #Monocytes 0.6 thou/uL (0.11-0.59); #Neutrophils 6.8 thou/uL (1.40-6.50); %Basophils 0.2 % (0.0-1.0); %Eosinophils 0.1 % (0.0-10.0); %Lymphocytes 9.8 % (21.0-51.0); %Monocytes 7.6 % (0.0-10.0); %Neutrophils 82.3 % (42.0-75.0); Hemoglobin 12.7 g/dL (12.0-16.0); Mean Corpuscular HGB CONC 34.4 g/dL (32.0-36.0); Mean Corpuscular Hemoglobin 32.6 pg (27.0-31.0); Mean Corpuscular Volume 94.7 fL (78.0-98.0); Mean Platelet Volume 10.6 fL (7.4-10.4); Platelet Count 67 thou/uL (130-400); Platelet Morphology Comment Appears Decreased; RBC Distribution Width 13.8 % (11.5-14.5); White Blood Cell (WBC) Count 8.2 thou/uL (4.8-10.8)
[2021-08-09 21:53] LABS: SARS-CoV-2 NAA Rapid Test Not Detected (NotDetected)
[2021-08-09 22:41] LABS: CKMB 3.4 ng/mL (0-6.6)
[2021-08-10 02:06] LABS: Troponin I 0.057 ng/mL (< 0.028)
[2021-08-10 04:37] LABS: Troponin I 0.047 ng/mL (< 0.028)
[2021-08-10] MEDS ORDERED: Acetaminophen 650 MG Suppository PR PRN (09:08)
[2021-08-10] MEDS ORDERED: Acetaminophen 325 MG TAB PO PRN (09:08)
[2021-08-10] MEDS ORDERED: Apixaban 2.5 MG TAB PO SCH (09:15)
[2021-08-10] MEDS ORDERED: Vancomycin 1 GM in Premix Bag 1 BAG IVPB SCH (09:15)
[2021-08-10] MEDS ORDERED: Amiodarone 200 MG TAB PO SCH (09:15)
[2021-08-10] MEDS: Vancomycin HCl 500 MG in Sodium Chloride 0.9% 100 ML IVPB SCH (10:42)
[2021-08-10] MEDS: ceFAZolin 1 GM/D5W 1 GM in Premix Bag 1 BAG IVPB SCH ×2 (14:02→21:54)
[2021-08-10] MEDS: Icosapent Ethyl 1 GM CAPSULE PO SCH (16:44)
[2021-08-10] MEDS: Atorvastatin Calcium 40 MG TAB PO SCH (21:54)
[2021-08-10] MEDS: Apixaban 2.5 MG TAB PO SCH (21:54)
[2021-08-10] MEDS: Donepezil HCl 10 MG TAB PO SCH (21:54)
[2021-08-11 05:22] LABS: #Eosinphils 0.2 thou/uL (0.0-0.7); #Lymphocytes 1.2 thou/uL (1.20-3.40); #Monocytes 0.6 thou/uL (0.11-0.59); #Neutrophils 3.8 thou/uL (1.40-6.50); %Basophils 0.1 % (0.0-1.0); %Eosinophils 3.4 % (0.0-10.0); %Lymphocytes 20.9 % (21.0-51.0); %Monocytes 10.2 % (0.0-10.0); %Neutrophils 65.4 % (42.0-75.0); Hemoglobin 11.2 g/dL (12.0-16.0); Mean Corpuscular HGB CONC 33.6 g/dL (32.0-36.0); Mean Corpuscular Hemoglobin 32.1 pg (27.0-31.0); Mean Corpuscular Volume 95.6 fL (78.0-98.0); Mean Platelet Volume 10.5 fL (7.4-10.4); Platelet Count 51 thou/uL (130-400); RBC Distribution Width 13.7 % (11.5-14.5); Red Blood Cell (RBC) Count 3.48 mill/uL (4.20-5.40); White Blood Cell (WBC) Count 5.9 thou/uL (4.8-10.8)
[2021-08-11 05:41] LABS: Anion Gap 12 mmol/L (10-20); BUN (Urea Nitrogen) 23 mg/dL (9.8-20.1); Calc. Creatinine Clearance 29 mL/min (70-130); Calcium 8.5 mg/dL (7.8-10.44); Carbon Dioxide 24 mmol/L (23-31); Chloride 108 mmol/L (98-107); Glucose 91 mg/dL (83-110); Potassium 3.3 mmol/L (3.5-5.1); Sodium 141 mmol/L (136-145)
[2021-08-11] MEDS: ceFAZolin 1 GM/D5W 1 GM in Premix Bag 1 BAG IVPB SCH (06:13)
[2021-08-11] MEDS: Icosapent Ethyl 1 GM CAPSULE PO SCH ×2 (09:26→17:12)
[2021-08-11] MEDS: Apixaban 2.5 MG TAB PO SCH ×2 (09:27→20:48)
[2021-08-11] MEDS: Amiodarone 200 MG TAB PO SCH (09:27)
[2021-08-11] MEDS ORDERED: Potassium Chloride 20 MEQ TAB PO SCH (10:15)
[2021-08-11] MEDS: Vancomycin HCl 500 MG in Sodium Chloride 0.9% 100 ML IVPB SCH (13:44)
[2021-08-11] MEDS: CEFAZOLIN 0.5 GM in Sodium Chloride 0.9% 100 ML IVPB SCH (18:40)
[2021-08-11] MEDS: Donepezil HCl 10 MG TAB PO SCH (20:48)
[2021-08-11] MEDS: Atorvastatin Calcium 40 MG TAB PO SCH (20:48)
[2021-08-12 05:42] LABS: #Eosinphils 0.3 thou/uL (0.0-0.7); #Monocytes 0.4 thou/uL (0.11-0.59); #Neutrophils 2.3 thou/uL (1.40-6.50); %Basophils 0.4 % (0.0-1.0); %Eosinophils 6.2 % (0.0-10.0); %Lymphocytes 25.8 % (21.0-51.0); %Monocytes 10.3 % (0.0-10.0); %Neutrophils 57.3 % (42.0-75.0); Mean Corpuscular HGB CONC 33.2 g/dL (32.0-36.0); Mean Corpuscular Volume 96.2 fL (78.0-98.0); Mean Platelet Volume 10.4 fL (7.4-10.4); Platelet Count 62 thou/uL (130-400); RBC Distribution Width 13.7 % (11.5-14.5); Red Blood Cell (RBC) Count 3.44 mill/uL (4.20-5.40)
[2021-08-12] MEDS: CEFAZOLIN 0.5 GM in Sodium Chloride 0.9% 100 ML IVPB SCH ×2 (05:50→17:39)
[2021-08-12 05:51] LABS: Anion Gap 12 mmol/L (10-20); BUN (Urea Nitrogen) 21 mg/dL (9.8-20.1); Calc. Creatinine Clearance 25 mL/min (70-130); Calcium 8.4 mg/dL (7.8-10.44); Carbon Dioxide 23 mmol/L (23-31); Chloride 110 mmol/L (98-107); Glucose 95 mg/dL (83-110); Potassium 3.8 mmol/L (3.5-5.1); Sodium 141 mmol/L (136-145)
[2021-08-12] MEDS: Amiodarone 200 MG TAB PO SCH (09:52)
[2021-08-12] MEDS: Apixaban 2.5 MG TAB PO SCH ×2 (09:52→21:05)
[2021-08-12] MEDS: Icosapent Ethyl 1 GM CAPSULE PO SCH ×2 (09:52→17:23)
[2021-08-12 10:21] LABS: Vancomycin, Trough 7.2 ug/mL
[2021-08-12] MEDS ORDERED: Sodium Chloride 0.9% 1,000 ML IV SCH (11:15)
[2021-08-12 11:56] LABS: Mean Corpuscular HGB CONC 32.9 g/dL (32.0-36.0); Mean Corpuscular Hemoglobin 31.4 pg (27.0-31.0); Mean Corpuscular Volume 95.5 fL (78.0-98.0); Mean Platelet Volume 10.1 fL (7.4-10.4); Platelet Count 69 thou/uL (130-400); RBC Distribution Width 13.8 % (11.5-14.5); Red Blood Cell (RBC) Count 3.51 mill/uL (4.20-5.40); White Blood Cell (WBC) Count 3.7 thou/uL (4.8-10.8)
[2021-08-12 12:17] LABS: Band 2 % (5-11); Eosinophils 5 % (0-10); Lymphocytes 19 % (21-51); MDiff Complete? YES; Monocytes 20 % (0-10); Neutrophil 54 % (42-75); Platelet Morphology Comment Appears Decreased; Polychromasia SLIGHT = 2-3 cells (100X) (0-2/hpf)
[2021-08-12 13:21] VITALS: BMI 18.6
[2021-08-12] MEDS: Vancomycin 1 GM in Premix Bag 1 BAG IVPB SCH (13:32)
[2021-08-12] MEDS: Atorvastatin Calcium 40 MG TAB PO SCH (21:04)
[2021-08-12] MEDS: Donepezil HCl 10 MG TAB PO SCH (21:05)
[2021-08-13 05:49] LABS: #Eosinphils 0.2 thou/uL (0.0-0.7); #Lymphocytes 0.9 thou/uL (1.20-3.40); #Monocytes 0.3 thou/uL (0.11-0.59); #Neutrophils 2.1 thou/uL (1.40-6.50); %Basophils 1.2 % (0.0-1.0); %Eosinophils 5.2 % (0.0-10.0); %Lymphocytes 24.4 % (21.0-51.0); %Monocytes 9.8 % (0.0-10.0); %Neutrophils 59.4 % (42.0-75.0); Hemoglobin 10.8 g/dL (12.0-16.0); Mean Corpuscular HGB CONC 33.3 g/dL (32.0-36.0); Mean Corpuscular Hemoglobin 32.1 pg (27.0-31.0); Mean Corpuscular Volume 96.3 fL (78.0-98.0); Mean Platelet Volume 10.2 fL (7.4-10.4); Platelet Count 76 thou/uL (130-400); RBC Distribution Width 13.8 % (11.5-14.5); Red Blood Cell (RBC) Count 3.36 mill/uL (4.20-5.40); White Blood Cell (WBC) Count 3.5 thou/uL (4.8-10.8)
[2021-08-13 06:03] LABS: Anion Gap 13 mmol/L (10-20); BUN (Urea Nitrogen) 18 mg/dL (9.8-20.1); Calc. Creatinine Clearance 31 mL/min (70-130); Calcium 8.3 mg/dL (7.8-10.44); Carbon Dioxide 20 mmol/L (23-31); Chloride 111 mmol/L (98-107); Glucose 89 mg/dL (83-110); Potassium 3.6 mmol/L (3.5-5.1); Sodium 140 mmol/L (136-145)
[2021-08-13] MEDS: Apixaban 2.5 MG TAB PO SCH (09:01)
[2021-08-13] MEDS: Amiodarone 200 MG TAB PO SCH (09:01)
[2021-08-13] MEDS: Icosapent Ethyl 1 GM CAPSULE PO SCH (09:51)
[2021-08-13] MEDS: Vancomycin 1 GM in Premix Bag 1 BAG IVPB SCH (13:09)
[2021-08-13 17:41] VITALS: BP 148/67; TEMP 97.6
[2021-08-13] MEDS ORDERED: CEFAZOLIN 0.5 GM, Admixture Fee 1 EACH in Sodium Chloride 0.9% 100 ML IVPB SCH (18:00)
== END 2021-08-13 17:39 | disposition home health service (06) | DRG 871 ==
LOC: ERS 19:51 → 2NO 08-10 00:47
PROVIDERS: ADMIT Family Medicine; ATTEND Internal Medicine
DX: A41.9 Sepsis, unspecified organism (principal); G92.9 Unspecified toxic encephalopathy; E44.0 Moderate protein-calorie malnutrition; Z68.1 Body mass index [BMI] 19.9 or less, adult; I48.20 Chronic atrial fibrillation, unspecified; N17.9 Acute kidney failure, unspecified; L03.115 Cellulitis of right lower limb; N30.00 Acute cystitis without hematuria; D61.818 Other pancytopenia; E87.6 Hypokalemia; N18.30 Chronic kidney disease, stage 3 unspecified; E78.5 Hyperlipidemia, unspecified; E78.00 Pure hypercholesterolemia, unspecified; I73.9 Peripheral vascular disease, unspecified; G30.9 Alzheimer's disease, unspecified; F02.80 Dementia in other diseases classified elsewhere, unspecified severity, without behavioral disturbance, psychotic disturbance, mood disturbance, and anxiety; F98.8 Other specified behavioral and emotional disorders with onset usually occurring in childhood and adolescence; I12.9 Hypertensive chronic kidney disease with stage 1 through stage 4 chronic kidney disease, or unspecified chronic kidney disease; Z95.0 Presence of cardiac pacemaker; Z90.710 Acquired absence of both cervix and uterus; Z87.891 Personal history of nicotine dependence; Z88.2 Allergy status to sulfonamides; Z79.01 Long term (current) use of anticoagulants; Z79.899 Other long term (current) drug therapy
CPT/HCPCS: 36415; 51701; 70450; 80048; 80053; 80202; 81003; 81015; 82553; 83605; 84484; 85025; 85060; 85379; 86140; 87040; 87086; 93005; 96374; J0690; J3370; J3490; J7050; U0002

== ENCOUNTER 2021-10-13 12:09 | Emergency (ER) | payer MEDICARE | END 2021-10-13 16:05 | disposition home or self-care (01) | LOC: ERS 12:09 | DX: S32.040A Wedge compression fracture of fourth lumbar vertebra, initial encounter for closed fracture (principal); S32.020A Wedge compression fracture of second lumbar vertebra, initial encounter for closed fracture; I10 Essential (primary) hypertension; E78.5 Hyperlipidemia, unspecified; E78.00 Pure hypercholesterolemia, unspecified; Z87.891 Personal history of nicotine dependence; W18.39XA Other fall on same level, initial encounter | CPT/HCPCS: 72131 ==